=== PATIENT | female | born 1955 | race Caucasian/White ===

== ENCOUNTER 2016-09-04 04:30 | Emergency (ER) | payer OTHER, MEDICAID ==
[2016-09-04] MEDS ORDERED: ONDANSETRON 4 MG/2 ML VIAL IVP ONE (04:47)
[2016-09-04] MEDS ORDERED: NS 1,000 ML IV ONE ×2 (04:47→05:57)
[2016-09-04] MEDS ORDERED: POTASSIUM Cl (KCl) 100 ML IV ONE (05:01)
--- NOTE | 2016-09-04 05:01 | EDPHY ---
H & P Stated Complaint: elevated glucoses at home, RLQ pain, N/V x6 days, possible constipation HPI/ROS: HPI CHIEF COMPLAINT: Right lower quadrant abdominal pain, persistent nausea vomiting HISTORY OF PRESENT ILLNESS: this patient very pleasant 61-year-old female significant past medical history for depression, PTSD, insulin-dependent diabetes, GERD, IBS and hypertension she presents to the emergency room with 6 days of ongoing right lower quadrant abdominal pain she describes as burning sensation and then at time stabbing, nonradiating. She has associated nausea vomiting with this. She denies diarrhea, denies fever, denies chest pain or shortness of breath. States it has progressively gotten worse. Ongoing nausea vomiting. Time 6 days. Past Medical History: Insulin-dependent diabetes, PTSD, depression, GERD, IBS , hypertension Past Surgical History: Gallbladder removal, it is noted she still has her appendix Social History: Daily use of tobacco, denies drugs or alcohol Family History: noncontributory ROS REVIEW OF SYSTEMS: A comprehensive 10 point review of systems is otherwise negative aside from elements mentioned in the history of present illness. Exam Constitutional appears nontoxic triage nursing summary reviewed, vital signs reviewed, awake/alert. Eyes normal conjunctivae and sclera, EOMI, PERRLA. HENT normal inspection, atraumatic, moist mucus membranes, no epistaxis, neck supple/ no meningismus, no raccoon eyes. Respiratory clear to auscultation bilaterally, normal breath sounds, no respiratory distress, no wheezing. Cardiovascular rate normal, regular rhythm, no murmur, no edema, distal pulses normal. Gastrointestinal soft, tender palpation right lower quadrant no rebound, no guarding, normal bowel sounds, no distension, no pulsatile mass. Genitourinary no CVA tenderness. Musculoskeletal no midline vertebral tenderness, full range of motion, no calf swelling, no tenderness of extremities, no meningismus, good pulses, neurovascularly intact. Skin pink, warm, & dry, no rash, skin atraumatic. Neurologic awake, alert and oriented x 3, AAOx3, moves all 4 extremities equally, motor intact, sensory intact, CN II-XII intact, normal cerebellar, normal vision, normal speech. Psychiatric normal mood/affect. Heme/Lymph/Immune no lymphadenopathy. Differential diagnosis includes but is not limited to and in no particular order : Bowel obstruction, appendicitis, gallbladder disease, diverticulitis, colitis , enteritis, perforated viscus, gastritis, GERD, esophagitis, urinary tract infection, pyelonephritis, kidney stones, DKA Medical Decision Making: This patient had an IV established patient received a fluid bolus, IV Zofran 4 mg for nausea, IV morphine for pain control. She will need a lactic acid and a CT scan of her abdomen pelvis. Re-evaluation: 0600: this noted patient's blood work results her potassium is 5.5. Also please note that there was an order in for 10 mg IV potassium this has been discontinued she did not get this. This was mistakenly ordered. She did receive IV fluids 1 L so far ordered her 2nd IV fluid [address] scan of the abdomen pelvis with IV contrast The results of the study are duodenal thickening concerning for duodenitis however no significant inflammation around this, unremarkable appendix, otherwise unremarkable CT scan and pelvis with IV contrast. The study was read by Dr. Sheldon I viewed the images myself on the PACS system. 0635: this patient p. o. challenge successfully without any vomiting. Her abdomen remained soft nontender. She did receive a 2nd L fluid in her repeat BMP is pending. Source: Patient - Personal History Current Tetanus/Diphtheria Vaccine: Unsure Current Tetanus Diphtheria and Acellular Pertussis (TDAP): Unsure Tetanus Vaccine Date: < 10 - Medical/Surgical History Hx Asthma: Yes Hx Chronic Respiratory Disease: No Hx Diabetes: Yes Hx Cardiac Disease: No Hx Renal Disease: No Hx Cirrhosis: No Hx Alcoholism: No Hx HIV/AIDS: No Hx Splenectomy or Spleen Trauma: No Other PMH: C SECTION X2, T. LIGATION, HTN, IDDM, depression, IBS, ECT - Social History Smoking Status: Current every day smoker Constitutional: Initial Vital Signs Temperature (C) 37 C 09/04/16 04:34 Heart Rate 105 H 09/04/16 04:34 Respiratory Rate 16 09/04/16 04:34 Blood Pressure 107/86 H 09/04/16 04:34 O2 Sat (%) 91 L 09/04/16 04:34 O2 Delivery Mode Nasal Cannula O2 (L/minute) 2 Allergies/Adverse Reactions: melatonin Allergy (Intermediate, Verified 02/02/16 08:47) quetiapine fumarate [From Seroquel] Allergy (Intermediate, Verified 02/02/16 08: 47) sulfamethoxazole [From Bactrim] Allergy (Verified 02/02/16 08:47) SLOGHING ORAL MUCOSA trimethoprim [From Bactrim] Allergy (Verified 02/02/16 08:47) SLOGHING ORAL MUCOSA Home Medications: Medication Instructions Recorded metFORMIN HCL [Glucophage 500 mg 1,000 mg PO BIDMEAL 05/14/11 (*)] Albuterol Hfa Anes Only [Proair 1 - 2 puffs IH DAILY PRN 02/02/16 Hfa Icu (*)] Aspirin [Aspirin 81mg (*)] 81 mg PO DAILY 02/02/16 Cholecalciferol Vit D3 [Vitamin D3 1,000 units PO DAILY 02/02/16 (*)] Cyclobenzaprine [Flexeril 10 MG 10 mg PO DAILY 02/02/16 (*)] Herbals/Supplements -Info Only 1 ea PO DAILY 02/02/16 Insulin Aspart [Novolog Flexpen] 5 - 10 unit SC BIDMEAL 02/02/16 Insulin Glargine [Lantus 100 40 units SC HS 02/02/16 UNITS/ML (*)] Lisinopril/Hydrochlorothiazide 1 each PO DAILY 02/02/16 [Lisinopril-Hctz 10-12.5 mg Tab] Ondansetron Odt [Zofran Odt 4 mg 8 mg PO DAILY PRN 02/02/16 (*)] Promethazine HCl [Phenergan 25mg 25 mg PO DAILY PRN 02/02/16 (*)] ALPRAZolam [Xanax 1 MG (*)] 1 mg PO BID #60 tab 02/11/16 Albuterol [Proventil Neb] 3 ml IH DAILY #0 deyvial 02/11/16 Docusate Sodium [Colace 100 MG (*)] 100 mg PO HS #30 cap 02/11/16 Hydrocodone/APAP 5/325 [[place] 1 tab PO Q4 PRN #10 tab 02/11/16 5/325 (*)] Phenylephrine/Shk Lv/Mo/Pet,Wh 1 jorge RI PRN PRN #0 oint 02/11/16 [Preparation H Oint] Pravastatin Sodium [Pravachol] 20 mg PO HS #0 tab 02/11/16 Sennosides [Senokot] 1 tab PO BID #0 tab 02/11/16 Temazepam [Restoril] 60 mg PO HS #30 capsule 02/11/16 Zolpidem Tartrate [Ambien 5MG (*)] 5 mg PO HS PRN #30 tab 02/11/16 buPROPion XL [Wellbutrin 150mg XL] 150 mg PO BID #60 tab 02/11/16 risperiDONE [Risperdal 0.25mg (*)] 0.25 mg PO BID #60 tab 02/11/16 Ondansetron HCl [Zofran] 4 mg PO Q4-6PRN PRN #10 tablet 09/04/16 Ranitidine HCl [Zantac] 150 mg PO DAILY #30 tablet 09/04/16 Medical Decision Making - Data Points Laboratory Results: Laboratory Results 09/04/16 05:10 09/04/16 05:10 09/04/16 09/04/16 09/04/16 05:10 05:10 05:10 WBC 12.60 10^3/uL H 10^3/uL (3.80-9.50) RBC 5.14 10^6/uL 10^6/uL (4.18-5.33) Hgb 15.3 g/dL g/dL (12.6-16.3) Hct 44.3 % % (38.0-47.0) MCV 86.2 fL fL (81.5-99.8) MCH 29.8 pg pg (27.9-34.1) MCHC 34.5 g/dL g/dL (32.4-36.7) RDW 15.0 % % (11.5-15.2) Plt Count 255 10^3/uL 10^3/uL (150-400) MPV 9.5 fL fL (8.7-11.7) Neut % (Auto) 59.3 % % (39.3-74.2) Lymph % (Auto) 27.7 % % (15.0-45.0) [place] % (Auto) 11.9 % % (4.5-13.0) Eos % (Auto) 0.3 % L % (0.6-7.6) Baso % (Auto) 0.3 % % (0.3-1.7) Nucleat RBC Rel Count 0.0 % % (0.0-0.2) Absolute Neuts (auto) 7.47 10^3/uL H 10^3/uL (1.70-6.50) Absolute Lymphs (auto) 3.49 10^3/uL H 10^3/uL (1.00-3.00) Absolute Monos (auto) 1.50 10^3/uL H 10^3/uL (0.30-0.80) Absolute Eos (auto) 0.04 10^3/uL 10^3/uL (0.03-0.40) Absolute Basos (auto) 0.04 10^3/uL 10^3/uL (0.02-0.10) Absolute Nucleated RBC 0.00 10^3/uL 10^3/uL (0-0.01) Immature Gran % 0.5 % % (0.0-1.1) Immature Gran # 0.06 10^3/uL 10^3/uL (0.00-0.10) PT 14.7 SEC SEC (12.0-15.0) INR 1.15 (0.83-1.16) APTT 30.9 SEC SEC (23.0-38.0) VBG Lactic Acid Sodium 132 mEq/L L mEq/L (134-144) Potassium 5.5 mEq/L H mEq/L (3.5-5.2) Chloride 93 mEq/L L mEq/L (97-110) Carbon Dioxide 24 mEq/l mEq/l (22-31) Anion Gap 15 mEq/L mEq/L (8-16) BUN 26 mg/dL H mg/dL (7-23) Creatinine 0.7 mg/dL mg/dL (0.6-1.0) Estimated GFR > 60 Glucose 258 mg/dL H mg/dL (70-100) Calcium 9.4 mg/dL mg/dL (8.5-10.4) Total Bilirubin 1.5 mg/dL H mg/dL (0.1-1.4) Conjugated Bilirubin 0.7 mg/dL H mg/dL (0.0-0.5) Unconjugated Bilirubin 0.8 mg/dL mg/dL (0.0-1.1) AST 50 IU/L H IU/L (14-46) ALT 37 IU/L IU/L (9-52) Alkaline Phosphatase 104 IU/L IU/L (38-126) Total Protein 7.9 g/dL g/dL (6.3-8.2) Albumin 4.2 g/dL g/dL (3.5-5.0) Lipase 49.0 IU/L IU/L (23-300) Specimen Hemolysis 145 09/04/16 05:10 WBC RBC Hgb Hct MCV MCH MCHC RDW Plt Count MPV Neut % (Auto) Lymph % (Auto) [place] % (Auto) Eos % (Auto) Baso % (Auto) Nucleat RBC Rel Count Absolute Neuts (auto) Absolute Lymphs (auto) Absolute Monos (auto) Absolute Eos (auto) Absolute Basos (auto) Absolute Nucleated RBC Immature Gran % Immature Gran # PT INR APTT VBG Lactic Acid 1.8 mmol/L mmol/L (0.7-2.1) Sodium Potassium Chloride Carbon Dioxide Anion Gap BUN Creatinine Estimated GFR Glucose Calcium Total Bilirubin Conjugated Bilirubin Unconjugated Bilirubin AST ALT Alkaline Phosphatase Total Protein Albumin Lipase Specimen Hemolysis Medications Given: Discontinued Medications Sodium Chloride (Ns) 1,000 mls @ 0 mls/hr IV ONCE ONE PRN Reason: Wide Open Stop: 09/04/16 04:48 Last Admin: 09/04/16 04:50 Dose: 1,000 mls Potassium Chloride (Potassium Cl 10 Meq (Premix)) 100 mls @ 100 mls/hr IV EDNOW ONE Stop: 09/04/16 06:00 Last Admin: 09/04/16 05:03 Dose: Not Given Sodium Chloride (Ns) 1,000 mls @ 0 mls/hr IV ONCE ONE PRN Reason: Wide Open Stop: 09/04/16 05:58 Last Admin: 09/04/16 06:08 Dose: 1,000 mls Morphine Sulfate (Morphine) 6 mg IVP EDNOW ONE Stop: 09/04/16 04:48 Last Admin: 09/04/16 05:02 Dose: 6 mg Ondansetron HCl (Zofran) 4 mg IVP EDNOW ONE Stop: 09/04/16 04:48 Last Admin: 09/04/16 05:00 Dose: 4 mg Departure - Departure Disposition: Home, Routine, Self-Care Clinical Impression: Nausea & vomiting Qualifiers: Vomiting type: unspecified Vomiting Intractability: non-intractable Qualified Code(s): R11.2 - Nausea with vomiting, unspecified Abdominal pain Qualifiers: Abdominal location: right lower quadrant Qualified Code(s): R10.31 - Right lower quadrant pain Condition: Good Instructions: Acute Nausea and Vomiting (ED), Acute Abdominal Pain (ED) Additional Instructions: 1. Stay well-hydrated drink clear fluids today 2.Slowly advance her diet over the next 24 hours 3. return to the emergency room if you have worsening symptoms questions or concerns. Referrals: Toney Galaivz MD [Primary Care Provider] - As per Instructions Prescriptions: Ondansetron HCl [Zofran] 4 mg PO Q4-6PRN PRN #10 tablet PRN Reason: Nausea/Vomiting, Use 1st Ranitidine HCl [Zantac] 150 mg PO DAILY #30 tablet
[2016-09-04 05:22] LABS: % IMMATURE GRANULYOCYTES 0.5 % (0.0-1.1); ABSOLUTE IMMATURE GRANULOCYTES 0.06 10^3/uL (0.00-0.10); ADD DIFF? NO; ADD MORPH? NO; ADD SCAN? NO; ATYPICAL LYMPHOCYTE FLAG 10 (0-99); FRAGMENT RBC FLAG 0 (0-99); HEMATOCRIT 44.3 % (38.0-47.0); HEMOGLOBIN 15.3 g/dL (12.6-16.3); LEFT SHIFT FLG 10 (0-99); LIPEMIA HEMOLYSIS FLAG 90 (0-99); MEAN CELL HEMOGLOBIN 29.8 pg (27.9-34.1); MEAN CELL HEMOGLOBIN CONCENTR. 34.5 g/dL (32.4-36.7); MEAN CELL VOLUME 86.2 fL (81.5-99.8); MEAN PLATELET VOLUME 9.5 fL (8.7-11.7); PLATELET CLUMPS FLAG 10 (0-99); PLATELET COUNT 255 10^3/uL (150-400); RED BLOOD CELL COUNT 5.14 10^6/uL (4.18-5.33)
[2016-09-04 05:34] LABS: INR 1.15 (0.83-1.16); PROTIME(PATIENT) 14.7 SEC (12.0-15.0)
[2016-09-04 05:35] LABS: APTT 30.9 SEC (23.0-38.0)
[2016-09-04 05:38] LABS: ALANINE AMINOTRANSFERASE 37 IU/L (9-52); ALBUMIN 4.2 g/dL (3.5-5.0); ALKALINE PHOSPHATASE 104 IU/L (38-126); ANION GAP 15 mEq/L (8-16); ASPARTATE AMINOTRANSFERASE 50 IU/L (14-46); BILIRUBIN,TOTAL 1.5 mg/dL (0.1-1.4); BILIRUBIN-CONJUGATED 0.7 mg/dL (0.0-0.5); BILIRUBIN-UNCONJUGATED 0.8 mg/dL (0.0-1.1); CALCIUM 9.4 mg/dL (8.5-10.4); CARBON DIOXIDE 24 mEq/l (22-31); CHLORIDE 93 mEq/L (97-110); CREATININE 0.7 mg/dL (0.6-1.0); GLOMERULAR FILTRATION RATE > 60; GLUCOSE 258 mg/dL (70-100); POTASSIUM 5.5 mEq/L (3.5-5.2); SODIUM 132 mEq/L (134-144); SPECIMEN HEMOLYSIS 145; TOTAL PROTEIN 7.9 g/dL (6.3-8.2)
[2016-09-04] MEDS ORDERED: IOPAMIDOL (ISOVUE-300) 100 ML BTL IV ONE (05:44)
[2016-09-04 06:09] VITALS: O2SAT 95
[2016-09-04] MEDS ORDERED: PANTOPRAZOLE SODIUM 40 MG in NS 100 ML IV ONE (06:21)
[2016-09-04 06:50] LABS: COLOR YELLOW; LEUKOCYTE ESTERASE,URINE TRACE (NEGATIVE); NITRITE,URINE NEGATIVE (NEGATIVE)
[2016-09-04 06:58] LABS: BACTERIA TRACE /hpf (NONE SEEN); MUCUS TRACE /lpf (NONE-1+); WBC,URINE 15-25 /hpf (0-3)
[2016-09-04 07:15] LABS: ANION GAP 12 mEq/L (8-16); CALCIUM 7.8 mg/dL (8.5-10.4); CARBON DIOXIDE 25 mEq/l (22-31); CHLORIDE 98 mEq/L (97-110); CREATININE 0.6 mg/dL (0.6-1.0); GLOMERULAR FILTRATION RATE > 60; GLUCOSE 219 mg/dL (70-100); POTASSIUM 3.8 mEq/L (3.5-5.2); SODIUM 135 mEq/L (134-144)
[2016-09-04 07:40] VITALS: BP 107/75; PULSE 90; RESP 14; TEMP 98.1
== END 2016-09-04 07:36 | disposition home or self-care (01) ==
DX: R10.31 Right lower quadrant pain (principal); R11.2 Nausea with vomiting, unspecified; E11.9 Type 2 diabetes mellitus without complications; I10 Essential (primary) hypertension; J45.909 Unspecified asthma, uncomplicated; F17.200 Nicotine dependence, unspecified, uncomplicated; Z79.4 Long term (current) use of insulin; Z79.82 Long term (current) use of aspirin
CPT/HCPCS: 74177; 96361; 96365; 96375; 99285; J2405; Q9967

== ENCOUNTER 2017-03-04 19:58 | Inpatient (IN) | payer OTHER, MEDICAID ==
--- NOTE | 2017-03-04 20:27 | EDPHY ---
HPI/HX/ROS/PE/MDM Narrative: CHIEF COMPLAINT: Left eye and face rash/pain HPI: The patient is a 61 y/o female who complains of left eye and face rash and pain , onset 4 days ago. She stated the rash started around her left eye and progressed to her left cheek and right forehead. She saw her PCP when the rash initially started, and her doctor thought it could be shingles. Her left eye also began to close because of the rash and swelling. She states the rash hurts more than it itches. Denies mora, putting medicine on the rash, being out in the sun, exposure to new detergent or cloth, insect bites. Denies blisters, fever, rash on other parts of her body, or other pertinent symptoms. Portions of this note were transcribed by an ED scribe. I personally performed the history, physical exam, and medical decision making; and confirm the accuracy of the information in the transcribed note. REVIEW OF SYSTEMS: Aside from elements discussed in the HPI, a comprehensive 10-point review of systems was reviewed and is negative. PMH: Shingles Diabetes Hypertension Hypercholesteremia Depression SOCIAL HISTORY: at bedside Lives in [place] Smoker PHYSICAL EXAM: General:Patient is alert, in no acute distress. ENT:Right eye normal. Left periorbital swelling noted to the point where I cannot visualize the eye. No reported pain with eye movement however. Ears normal. Neck: Normal inspection. Full range of motion. Respiratory:No respiratory distress. Breath sounds normal bilaterally. Cardiovascular: Regular rate and rhythm. Strong peripheral pulses. Normal cap refill. Abdomen:The abdomen is nontender to palpation. There are no peritoneal signs. There are normal bowel sounds. Back: Normal to inspection. No tenderness to palpation. Skin: Very well demarcated erythematic area to skin, no vesicles, rash involves entire left side of face as well as right forehead and cheek. Otherwise normal color. See MDM discussion for more details. Extremities: Normal appearance. Full range of motion. Neuro: Oriented x3. Normal motor function. Normal sensory function. Psych: Unusual affect. ED Course: 2024: Reassessed patient and discussed plan for outpatient follow up. She did not want to do this, so plan for admission. 100mL IV Cefazolin given for her rash. 2044: Spoke with hospitalist service, Dr. Quiroz accepts admission of this patient. MDM: The patient is a 61 y/o female who presents with a very well demarcated erythematic area of skin to her face, of unknown etiology. She apparently has a history of Shingles, and this was the diagnosis given to her by her doctor recently, but I think this is quite unlikely as no vesicles are visible, and the rash clearly not only crosses the midline, but extends near the contralateral ear. The most unusual aspect of the rash is how well-demarcated it is - there is a clear space of approximately 1cm between superior border and hairline, and there is a linear diagonal area on her nose that appears to be spared. The rash looks most consistent with a topical burn of some kind, either from topical medication or a thermal burn, but patient adamantly denies this. The predominance on the left side of the face combined with sparing around the hairline, as in a hat, made me suspicious for photoexposure, but patient denies this possibility as well. In the absence of other clear etiology , I think we have to assume this is very aggressive facial erysipelas, which is particularly concerning given the patient's history of poorly-compliant IDDM. I offered her treatment as an outpatient with close ED follow-up visit tomorrow , but she declines this in favor of admission to the hospital for IV antibiotics and observation. General Time Seen by Provider: 03/04/17 20:11 Initial Vital Signs: Initial Vital Signs Temperature (C) 36.9 C 03/04/17 20:04 Heart Rate 105 H 03/04/17 20:04 Respiratory Rate 18 03/04/17 20:04 Blood Pressure 111/77 03/04/17 20:04 O2 Sat (%) 92 03/04/17 20:04 O2 Delivery Mode Room Air Allergies/Adverse Reactions: melatonin Allergy (Intermediate, Verified 02/02/16 08:47) quetiapine fumarate [From Seroquel] Allergy (Intermediate, Verified 02/02/16 08: 47) sulfamethoxazole [From Bactrim] Allergy (Verified 02/02/16 08:47) SLOGHING ORAL MUCOSA trimethoprim [From Bactrim] Allergy (Verified 02/02/16 08:47) SLOGHING ORAL MUCOSA Home Medications: Medication Instructions Recorded metFORMIN HCL [Glucophage 500 mg 1,000 mg PO BIDMEAL 05/14/11 (*)] Albuterol Hfa Anes Only [Proair 1 - 2 puffs IH DAILY PRN 02/02/16 Hfa Icu (*)] Aspirin [Aspirin 81mg (*)] 81 mg PO DAILY 02/02/16 Cholecalciferol Vit D3 [Vitamin D3 1,000 units PO DAILY 02/02/16 (*)] Cyclobenzaprine [Flexeril 10 MG 10 mg PO DAILY PRN 02/02/16 (*)] Insulin Aspart [Novolog Flexpen] 0 - 20 unit SC TIDMEAL 02/02/16 Insulin Glargine [Lantus 100 46 units SC HS 02/02/16 UNITS/ML (*)] Lisinopril/Hydrochlorothiazide 1 each PO DAILY 02/02/16 [Lisinopril-Hctz 10-12.5 mg Tab] Ondansetron Odt [Zofran Odt 4 mg 8 mg PO DAILY PRN 02/02/16 (*)] Promethazine HCl [Phenergan 25mg 25 mg PO DAILY PRN 02/02/16 (*)] ALPRAZolam [Xanax 1 MG (*)] 1 mg PO BID #60 tab 02/11/16 Docusate Sodium [Colace 100 MG (*)] 100 mg PO HS #30 cap 02/11/16 Temazepam [Restoril] 60 mg PO HS #30 capsule 02/11/16 buPROPion XL [Wellbutrin 150mg XL] 150 mg PO BID #60 tab 02/11/16 risperiDONE [Risperdal 0.25mg (*)] 0.25 mg PO BID #60 tab 02/11/16 Ranitidine HCl [Zantac] 150 mg PO DAILY #30 tablet 09/04/16 Albuterol [Proventil Neb] 3 ml IH DAILY PRN 03/04/17 Hydrocodone/Acetaminophen [[place] 1 tab PO DAILY PRN 03/04/17 5/325 (*)] Simvastatin 10 mg PO HS 03/04/17 Vitamin B Complex 1 each PO DAILY 03/04/17 [X-Wpsuizd-Mwhvvhp B-12] Departure - Departure Disposition: [facility] Acute Clinical Impression: Erysipelas Condition: Fair Report Scribed for: Berlin Dougherty Report Scribed by: Licha Reis Date of Report: 03/04/17 Time of Report: 20:12
[2017-03-04] MEDS ORDERED: ceFAZolin 2 GM/DEXTROSE 100 ML IV ONE (20:28)
[2017-03-04] MEDS ORDERED: NS 1,000 ML IV ONE (20:34)
[2017-03-04 21:09] LABS: % IMMATURE GRANULYOCYTES 0.4 % (0.0-1.1); ABSOLUTE IMMATURE GRANULOCYTES 0.04 10^3/uL (0.00-0.10); ADD DIFF? NO; ADD MORPH? NO; ADD SCAN? NO; ATYPICAL LYMPHOCYTE FLAG 10 (0-99); FRAGMENT RBC FLAG 0 (0-99); HEMATOCRIT 41.2 % (38.0-47.0); HEMOGLOBIN 13.5 g/dL (12.6-16.3); LEFT SHIFT FLG 0 (0-99); LIPEMIA HEMOLYSIS FLAG 80 (0-99); MEAN CELL HEMOGLOBIN CONCENTR. 32.8 g/dL (32.4-36.7); MEAN CELL VOLUME 91.6 fL (81.5-99.8); MEAN PLATELET VOLUME 9.7 fL (8.7-11.7); PLATELET CLUMPS FLAG 10 (0-99); PLATELET COUNT 165 10^3/uL (150-400)
[2017-03-04 21:23] LABS: ANION GAP 14 mEq/L (8-16); CALCIUM 8.8 mg/dL (8.5-10.4); CARBON DIOXIDE 20 mEq/l (22-31); CHLORIDE 100 mEq/L (97-110); CREATININE 0.6 mg/dL (0.6-1.0); GLOMERULAR FILTRATION RATE > 60; GLUCOSE 298 mg/dL (70-100); POTASSIUM 3.8 mEq/L (3.5-5.2); SODIUM 134 mEq/L (134-144)
[2017-03-04] MEDS ORDERED: PROMETHAZINE HCL 25 MG/ML INJ IVP PRN (21:46)
[2017-03-04] MEDS ORDERED: ONDANSETRON 4 MG/2 ML VIAL IVP PRN (21:46)
[2017-03-04] MEDS ORDERED: ACETAMINOPHEN 325 MG TAB PO PRN (21:46)
[2017-03-04] MEDS ORDERED: ALBUTEROL HFA ANES ONLY 200 PUFFS/8.5 GM MDI IH PRN (21:47)
[2017-03-04] MEDS ORDERED: ONDANSETRON DISINTEGRATING 4 MG TAB PO PRN (21:47)
[2017-03-04] MEDS ORDERED: D50W 25 GM/50 ML SYR IVP PRN (21:49)
[2017-03-04] MEDS ORDERED: ALBUTEROL 200 PUFFS/18 GM MDI IH PRN (21:50)
[2017-03-04] MEDS ORDERED: ceFAZolin 2 GM/DEXTROSE 100 ML IV SCH (22:00)
[2017-03-04] MEDS ORDERED: TEMAZEPAM 15 MG CAP PO PRN (22:01)
--- NOTE | 2017-03-04 22:13 | GHP ---
[f rep st] HISTORY AND PHYSICAL DATE OF ADMISSION: 03/04/2017 CHIEF COMPLAINT: Facial swelling and redness. HISTORY OF PRESENT ILLNESS: This is a 61-year-old female with history of poorly controlled diabetes mellitus and depression, who presented to the emergency department today with 4 days of facial swelli ng and redness. She denies any trauma. She does not recall being bitten by any insects. She has so me chills, but no fever. She does not monitor her blood sugar. The patient has been suffering from major depressive disorder and has undergone ECT. She tells me he r daughter was killed 6 years ago while at [place]. She has never gotten over the of her daugh jose, which I told her was understandable. PAST MEDICAL HISTORY: 1. Diabetes mellitus. 2. Hypertension. 3. Dyslipidemia. 4. Major depressive disorder. PAST SURGICAL HISTORY: section. HOME MEDICATIONS: Reviewed. Refer to C2FO for details. ALLERGIES: Melatonin, Seroquel, sulfamethoxazole, trimethoprim. SOCIAL HISTORY: She is and lives with her in [facility]. She smokes a pack a day . She denies any alcohol use. She denies any illicit drug use. FAMILY HISTORY: Reviewed and noncontributory. REVIEW OF SYSTEMS: Comprehensive 10-point review of systems was done and is negative, except for as mentioned in the HPI and below. The patient denies any pain with moving her eyes or vision problems once her left eyelid is open. PHYSICAL EXAMINATION: VITAL SIGNS: Blood pressure 112/87, pulse 93, respiratory rate 18, O2 saturat ion 94% on room air. Temperature afebrile. GENERAL: No acute distress. HEAD: Normocephalic. EYE S: PERRLA. Extraocular muscles are intact without entrapment. Left eyelid is swollen shut. There is erythema from the left mid face across the forehead with some crusting, no fluctuance or induratio n. MOUTH: Moist mucous membranes. No oral lesions. NECK: Supple. No lymphadenopathy. CARDIOVAS CULAR: S1, S2. No JVD. No lower extremity edema. PULMONARY: Lungs are clear. No wheezes, rales, or rhonchi. ABDOMEN: Soft, nontender, nondistended. No guarding or rebound tenderness. Normoacti ve bowel sounds. EXTREMITIES: No clubbing or cyanosis. NEURO: Cranial nerves 2-12 grossly intact. No focal motor or sensory deficits. SKIN: See above. DIAGNOSTICS: WBC is 9.59, hemoglobin 13.5, hematocrit 41.2, platelets 165. Sodium 134, potassium 3. 8, chloride 100, CO2 20, BUN 16, creatinine 0.6, glucose 298. Hemoglobin A1c done in October of 2016 was 9.5. ASSESSMENT/PLAN: This is a 61-year-old female presenting with: 1. Facial cellulitis without signs of orbital cellulitis. Plan: The patient was started on Ancef i n the emergency department, which will be continued at this time. The patient would benefit from sle eping with the head of the bed at 30 degrees to decrease eyelid swelling. 2. Poorly controlled diabetes mellitus. Plan: We will check a hemoglobin A1c. We will monitor bloo d sugars a.c. and h.s. We will continue her usual home dose of Lantus and treat with correctional in sulin as indicated. 3. History of hypertension. That appears to be well controlled. Plan is to continue home medicatio ns. 4. History of major depressive disorder. Plan: Continue home medications. At this time, the patient will be admitted to the hospital under inpatient status. Length of stay wi ll be dependent on her response to antibiotic treatment. /[id number]/MODL
[2017-03-04] MEDS: HYDROCODONE/APAP 5/325 TAB PO PRN (22:25)
[2017-03-04] MEDS: NICOTINE 21 MG/24 HR PATCH TD SCH (22:25)
[2017-03-04] MEDS ORDERED: ALPRAZolam 1 MG TAB PO SCH (22:36)
[2017-03-04] MEDS ORDERED: risperiDONE 0.25 MG TAB PO SCH (22:36)
[2017-03-04] MEDS ORDERED: INSULIN GLARGINE 100 UNITS/ML SYRINGE SC SCH (22:40)
[2017-03-04] MEDS ORDERED: INSULIN LISPRO 100 UNIT/ML SC ONE (23:00)
[2017-03-04] MEDS: risperiDONE 0.25 MG TAB PO SCH (23:03)
[2017-03-04] MEDS: PRAVASTATIN SODIUM 20 MG TAB PO SCH (23:03)
[2017-03-04] MEDS: ALPRAZolam 1 MG TAB PO SCH (23:03)
[2017-03-04] MEDS: INSULIN GLARGINE 100 UNITS/ML SYRINGE SC SCH (23:04)
[2017-03-05] MEDS ORDERED: ALOE VERA TP PRN (00:56)
[2017-03-05] MEDS: ceFAZolin 2 GM/DEXTROSE 100 ML IV SCH ×3 (04:32→20:53)
[2017-03-05] MEDS: oxyCODONE IR 5 MG TAB PO PRN ×2 (05:03→17:38)
[2017-03-05 05:09] LABS: % IMMATURE GRANULYOCYTES 0.5 % (0.0-1.1); ABSOLUTE IMMATURE GRANULOCYTES 0.05 10^3/uL (0.00-0.10); ADD DIFF? NO; ADD MORPH? NO; ADD SCAN? NO; ATYPICAL LYMPHOCYTE FLAG 20 (0-99); FRAGMENT RBC FLAG 0 (0-99); HEMATOCRIT 41.5 % (38.0-47.0); HEMOGLOBIN 13.8 g/dL (12.6-16.3); LEFT SHIFT FLG 0 (0-99); LIPEMIA HEMOLYSIS FLAG 80 (0-99); MEAN CELL HEMOGLOBIN 29.7 pg (27.9-34.1); MEAN CELL HEMOGLOBIN CONCENTR. 33.3 g/dL (32.4-36.7); MEAN CELL VOLUME 89.2 fL (81.5-99.8); MEAN PLATELET VOLUME 9.4 fL (8.7-11.7); PLATELET CLUMPS FLAG 0 (0-99); PLATELET COUNT 185 10^3/uL (150-400); RED BLOOD CELL COUNT 4.65 10^6/uL (4.18-5.33)
[2017-03-05 05:32] LABS: ANION GAP 10 mEq/L (8-16); CALCIUM 9.4 mg/dL (8.5-10.4); CARBON DIOXIDE 26 mEq/l (22-31); CHLORIDE 98 mEq/L (97-110); CREATININE 0.7 mg/dL (0.6-1.0); GLOMERULAR FILTRATION RATE > 60; GLUCOSE 156 mg/dL (70-100); POTASSIUM 3.9 mEq/L (3.5-5.2); SODIUM 134 mEq/L (134-144)
[2017-03-05] MEDS: metFORMIN HCL 500 MG TAB PO SCH ×2 (08:04→17:38)
[2017-03-05] MEDS: FAMOTIDINE 20 MG TAB PO SCH (08:05)
[2017-03-05] MEDS: LISINOPRIL/HCTZ 10/12.5 MG 1 EA TAB PO SCH (08:05)
[2017-03-05] MEDS: CHOLECALCIFEROL VIT D3 1,000 UNITS TAB PO SCH (08:05)
[2017-03-05] MEDS: ASPIRIN 81 MG CHEWABLE TAB PO SCH (08:06)
[2017-03-05] MEDS: buPROPion XL 150 MG TAB PO SCH ×2 (08:06→20:53)
[2017-03-05] MEDS: VITAMIN B COMPLEX 1 EA CAP/TAB PO SCH (08:06)
[2017-03-05] MEDS: ENOXAPARIN 40 MG/0.4 ML SYR SC SCH (08:07)
[2017-03-05] MEDS: risperiDONE 0.25 MG TAB PO SCH ×2 (08:07→20:53)
[2017-03-05] MEDS: ALPRAZolam 1 MG TAB PO SCH ×2 (08:07→20:53)
[2017-03-05] MEDS: INSULIN LISPRO 100 UNIT/ML SC SCH ×3 (08:07→18:05)
[2017-03-05] MEDS: NICOTINE 21 MG/24 HR PATCH TD SCH (08:07)
[2017-03-05] MEDS ORDERED: NON-FORMULARY NEW DRUG (Ranitidine Hcl [Zantac] 150 MG) PO SCH (09:00)
[2017-03-05] MEDS ORDERED: ALPRAZolam 1 MG TAB PO SCH (09:00)
[2017-03-05] MEDS ORDERED: LISINOPRIL/HCTZ 10/12.5 MG 1 EA TAB PO SCH (09:00)
[2017-03-05] MEDS ORDERED: risperiDONE 0.25 MG TAB PO SCH (09:00)
[2017-03-05 09:51] LABS: HEMOGLOBIN A1C 9.1 % (4.0-6.0)
--- NOTE | 2017-03-05 09:52 | ASMTCASEMG ---
Living Arrangements What is your living Answers: With Spouse arrangement? Who do you live with? Type Of Residence What kind of residence do Answers: Apartment you live in? Discharge Plan Comments Coordination Status Comments Notes: Patient is a 61yo woman who was admitted for facial cellulitis and poorly controlled diabetes. She has a hx of depression and has undergone ECT. Patient's daughter was killed at [place], 6 years ago and she has not recovered from this event. OT/PT have been ordered. Patient is a pack a day smoker. CM will follow for d/c needs. Date Signed: 03/05/2017 09:51 AM Electronically Signed By:Gilma Echeverria
[2017-03-05] MEDS ORDERED: CALCIUM CARBONATE 500 MG CHEWABLE TAB PO PRN (10:13)
--- NOTE | 2017-03-05 10:18 | HOSPPROG ---
Hospitalist Progress Note Assessment/Plan: 61 y/o female presenting with #facial cellulitis improving on Ancef -cont IV Ancef for now #Uncontrolled T2 DM -cont to monitor sugars and treat with correctional insulin as needed #tobacco use -cont nicotine replacement and encourage quitting #Wheezing suspect underlying copd -duonebs prn Dispo: continue inpatient care Subjective: improving facial pain and swelling. Denies pain with eye movement. Denies visual disturbance Objective: Vital Signs Temp Pulse Resp BP Pulse Ox 37.1 C 95 18 120/75 95 03/05/17 07:32 03/05/17 07:32 03/05/17 07:32 03/05/17 08:05 03/05/17 07:32 Laboratory Results 03/05/17 04:49 03/05/17 04:49 Physical Exam: gen nad cv rrr pulm clear mild wheeze face with improving erythema over forehead erythema continues to persist adjacent to left eye. decreased eyelid swelling ICD10 Worksheet Patient Problems: Problems Problem Status Onset Hyperglycemia Acute Nausea & vomiting Acute Severe depression Acute Erysipelas Acute
[2017-03-05] MEDS: IPRATROPIUM/ALBUTEROL 3 ML DEYVIAL IH PRN ×2 (11:50→17:58)
[2017-03-05] MEDS: HYDROCODONE/APAP 5/325 TAB PO PRN (19:49)
[2017-03-05] MEDS: DOCUSATE SODIUM 100 MG CAP PO SCH (20:53)
[2017-03-05] MEDS: PRAVASTATIN SODIUM 20 MG TAB PO SCH (20:53)
[2017-03-05] MEDS: INSULIN GLARGINE 100 UNITS/ML SYRINGE SC SCH (20:54)
[2017-03-05] MEDS ORDERED: NON-FORMULARY NEW DRUG (Simvastatin [Simvastatin] 10 MG) PO SCH (21:00)
[2017-03-05] MEDS ORDERED: TEMAZEPAM 60 MG PO SCH (21:00)
[2017-03-05] MEDS ORDERED: INSULIN GLARGINE 100 UNITS/ML SYRINGE SC SCH (21:00)
[2017-03-05] MEDS ORDERED: INSULIN LISPRO 100 UNIT/ML SC ONE (22:39)
[2017-03-06] MEDS: ceFAZolin 2 GM/DEXTROSE 100 ML IV SCH ×3 (05:34→20:27)
[2017-03-06] MEDS: NICOTINE 21 MG/24 HR PATCH TD SCH (08:44)
[2017-03-06] MEDS: INSULIN LISPRO 100 UNIT/ML SC SCH ×3 (08:49→18:38)
[2017-03-06] MEDS: ENOXAPARIN 40 MG/0.4 ML SYR SC SCH (08:53)
[2017-03-06] MEDS: LISINOPRIL/HCTZ 10/12.5 MG 1 EA TAB PO SCH (08:54)
[2017-03-06] MEDS: ALPRAZolam 1 MG TAB PO SCH ×2 (08:57→20:28)
[2017-03-06] MEDS: VITAMIN B COMPLEX 1 EA CAP/TAB PO SCH (09:01)
[2017-03-06] MEDS: metFORMIN HCL 500 MG TAB PO SCH ×2 (09:01→17:20)
[2017-03-06] MEDS: risperiDONE 0.25 MG TAB PO SCH ×2 (09:02→20:28)
[2017-03-06] MEDS: buPROPion XL 150 MG TAB PO SCH ×2 (09:03→20:28)
[2017-03-06] MEDS: FAMOTIDINE 20 MG TAB PO SCH (09:04)
[2017-03-06] MEDS: CHOLECALCIFEROL VIT D3 1,000 UNITS TAB PO SCH (09:05)
[2017-03-06] MEDS: ASPIRIN 81 MG CHEWABLE TAB PO SCH (09:05)
[2017-03-06] MEDS: oxyCODONE IR 5 MG TAB PO PRN ×2 (11:30→17:20)
--- NOTE | 2017-03-06 15:44 | HOSPPROG ---
Hospitalist Progress Note Assessment/Plan: 61 y/o female presenting with #facial cellulitis improving on Ancef -cont IV Ancef #Uncontrolled T2 DM -cont to monitor sugars and treat with correctional insulin as needed #tobacco use -cont nicotine replacement and encourage quitting #Wheezing suspect underlying copd -adrienne prn Dispo: continue inpatient care. will likely be able to transition to oral antibiotics tomorrow and discharge home Subjective: reports improving pain over her left eye. Denies any vision problems. No fevers or chills. Overall she is feeling better. Objective: Vital Signs Temp Pulse Resp BP Pulse Ox 37.1 C 99 20 109/79 97 03/06/17 15:13 03/06/17 15:13 03/06/17 15:13 03/06/17 15:13 03/06/17 15:13 Laboratory Results 03/05/17 04:49 03/05/17 04:49 03/05/17 03/06/17 03/07/17 05:59 05:59 05:59 Intake Total 1000 Balance 1000 - Physical Exam Constitutional: no apparent distress, appears nourished, not in pain Cardiovascular: regular rate and rhythym, no murmur, rub, or gallop Respiratory: no respiratory distress, no rales or rhonchi, clear to auscultation Skin: other ( Improving erythema over forehead no induration or fluctuance erythema continues to be prominent around the left eye) Neurologic: AAOx3, sensation intact bilaterally, CN II-XII Intact, No facial droop ICD10 Worksheet Patient Problems: Problems Problem Status Onset Hyperglycemia Acute Nausea & vomiting Acute Severe depression Acute Erysipelas Acute
--- NOTE | 2017-03-06 15:46 | ASMTCMCOM ---
CM Note CM Note Notes: CM met w/ pt for dispo planning. OT is recommending home, independent. PT is recommending HC vs SNF. Pt reports that she has a supportive . Pt is declining HC and SNF. Pt will most likely discharge independent without any neeeds. Pt reports that she will need a ride when she discharges. CM and pt spoke about loss of daughter. Pt reports that she spends most of her day in bed due to her depression. Pt reports that she sees a therapist and finds it somewhat helpful. CM available for changes. Date Signed: 03/06/2017 03:45 PM Electronically Signed By:COOKIE Hagan
[2017-03-06] MEDS: IPRATROPIUM/ALBUTEROL 3 ML DEYVIAL IH PRN (19:15)
[2017-03-06] MEDS: INSULIN GLARGINE 100 UNITS/ML SYRINGE SC SCH (20:27)
[2017-03-06] MEDS: DOCUSATE SODIUM 100 MG CAP PO SCH (20:27)
[2017-03-06] MEDS: PRAVASTATIN SODIUM 20 MG TAB PO SCH (20:28)
[2017-03-06] MEDS: HYDROCODONE/APAP 5/325 TAB PO PRN (22:27)
[2017-03-07] MEDS: ceFAZolin 2 GM/DEXTROSE 100 ML IV SCH (05:07)
[2017-03-07] MEDS: metFORMIN HCL 500 MG TAB PO SCH (07:46)
[2017-03-07] MEDS: INSULIN LISPRO 100 UNIT/ML SC SCH ×2 (07:46→12:30)
[2017-03-07] MEDS: ALPRAZolam 1 MG TAB PO SCH (08:20)
[2017-03-07] MEDS: buPROPion XL 150 MG TAB PO SCH (08:20)
[2017-03-07] MEDS: CHOLECALCIFEROL VIT D3 1,000 UNITS TAB PO SCH (08:21)
[2017-03-07] MEDS: FAMOTIDINE 20 MG TAB PO SCH (08:21)
[2017-03-07] MEDS: HYDROCODONE/APAP 5/325 TAB PO PRN (08:21)
[2017-03-07] MEDS: LISINOPRIL/HCTZ 10/12.5 MG 1 EA TAB PO SCH (08:21)
[2017-03-07] MEDS: risperiDONE 0.25 MG TAB PO SCH (08:21)
[2017-03-07] MEDS: VITAMIN B COMPLEX 1 EA CAP/TAB PO SCH (08:22)
[2017-03-07] MEDS: NICOTINE 21 MG/24 HR PATCH TD SCH (08:22)
[2017-03-07] MEDS: ENOXAPARIN 40 MG/0.4 ML SYR SC SCH (08:22)
[2017-03-07] MEDS: ASPIRIN 81 MG CHEWABLE TAB PO SCH (08:22)
[2017-03-07 10:58] VITALS: BP 110/77; PULSE 91; RESP 16; TEMP 98.1; O2SAT 90
--- NOTE | 2017-03-07 12:16 | GDS ---
[f rep st] DISCHARGE SUMMARY DISCHARGE DIAGNOSES: 1. Facial cellulitis, most likely secondary to strep. 2. Poorly controlled type 2 diabetes mellitus. 3. Tobacco abuse. HOSPITAL COURSE AND STAY BY PROBLEM: 1. Facial cellulitis: The patient was admitted to the hospital with facial cellulitis. She has bee n on IV cefazolin since admission and has had significant improvement of the redness and swelling ove r her forehead and eye. She has not had any problems with her vision or signs or symptoms of orbital cellulitis. On the day of discharge, she states she is feeling much better. She denies any fevers or chills. 2. Poorly controlled type 2 insulin-dependent diabetes mellitus: The patient had a hemoglobin A1c d one that was 9.1. She does use insulin at home. The patient admits that she is not very compliant w ith her diet but strives to do better. Sugars were treated with correctional insulin during this sta y, and she was also treated with glargine insulin per her usual home dose. PHYSICAL EXAM: VITAL SIGNS: On the day of discharge, blood pressure 110/77, pulse 91, respiratory r ate 16, O2 sat 98% on room air. GENERAL: No acute distress. LUNGS: Clear. HEENT: Face with impr oving erythema over the forehead and around the left eye. There is no entrapment. Extraocular muscl es are intact. There is no pain with eye movement. DISCHARGE MEDICATIONS: Please refer to discharge medication reconciliation in [facility] for details. Below is a preliminary list. NEW MEDICATIONS ON HOSPITAL DISCHARGE: 1. Cephalexin 500 mg p.o. four times daily for 7 days. 2. A refill was given for [place] 5/325 to be taken as needed for pain every 4-6 hours, prescription f or #20 was given. 3. All other home medications were continued at her usual home dosages. DISCHARGE INSTRUCTIONS: The patient will be discharged home where she was instructed to follow up wi th her primary care provider in the next week for routine hospital followup as well as to further man age her diabetes. She was instructed to stop smoking. She should seek medical attention if her redn ess returns or if she has any new medical problems. /[id number]/MODL
--- NOTE | 2017-03-07 12:30 | ASMTCMCOM ---
CM Note CM Note Notes: Spoke w/pt re; dc poc, declines homecare but needs help w/transportation. CM assisted pt with cab voucher, community integration specialist to call for cab when pt is ready. Date Signed: 03/07/2017 12:29 PM Electronically Signed By:Sarah Alvarez RN
--- NOTE | 2017-03-07 14:21 | ASDISCHSUM ---
Discharge Information Plan Status:Home with No Needs Medically Cleared to Leave: Discharge Date:03/07/2017 01:35 PM CM D/C Disposition:Home, Routine, Self-Care ADT D/C Disposition:Home, Routine, Self-Care Projected Discharge Date:03/07/2017 01:35 PM Transportation at D/C:Cab Voucher Discharge Delay Reason: Follow-Up Date:03/07/2017 01:35 PM Discharge Slot: Final Diagnosis: Placement Information Patient Contact Information Contact Name:JACQUES Relationship: Address:[address] [place] [address] Work Phone: City:[place] Alternate Phone: [facility]/Zip Code:[place] [address] Email: Financial Information Financial Class: Primary Plan Desc:MEDICARE INPATIENT Primary Plan Number:[id number] Secondary Plan Desc:MED[place] Secondary Plan Number:[id number] Assessment Information [facility] Initial CM Assessment Living Arrangements What is your living Answers: With Spouse arrangement? Who do you live with? Type Of Residence What kind of residence do Answers: Apartment you live in? Discharge Plan Comments Coordination Status Comments Notes: Patient is a 61yo woman who was admitted for facial cellulitis and poorly controlled diabetes. She has a hx of depression and has undergone ECT. Patient's daughter was killed at [place], 6 years ago and she has not recovered from this event. OT/PT have been ordered. Patient is a pack a day smoker. CM will follow for d/c needs. Date Signed: 03/05/2017 09:51 AM Electronically Signed By:Gilma Echeverria LCSW [facility] CM Progress Note CM Note CM Note Notes: CM met w/ pt for dispo planning. OT is recommending home, independent. PT is recommending HC vs SNF. Pt reports that she has a supportive . Pt is declining HC and SNF. Pt will most likely discharge independent without any neeeds. Pt reports that she will need a ride when she discharges. CM and pt spoke about loss of daughter. Pt reports that she spends most of her day in bed due to her depression. Pt reports that she sees a therapist and finds it somewhat helpful. CM available for changes. Date Signed: 03/06/2017 03:45 PM Electronically Signed By:COOKIE Hagan [facility] Progress Note CM Note CM Note Notes: Spoke w/pt re; dc poc, declines homecare but needs help w/transportation. CM assisted pt with cab voucher, refinery operator helper crude unit to call for cab when pt is ready. Date Signed: 03/07/2017 12:29 PM Electronically Signed By:Sarah Alvarez RN Intervention Information Intervention Type:*Incorrect Registration Date of Service:03/04/2017 09:06 AM Patient Type:Observation Staff Member:Pastora Raphael Hours: Discipline: Severity: Comment: Intervention Type:*ROSANNA-Signed Date of Service:03/05/2017 09:28 AM Patient Type:Inpatient Staff Member:Emily Fowler Hours: Discipline: Severity: Comment:
== END 2017-03-07 13:35 | disposition home or self-care (01) | DRG 603 ==
LOC: F3E 21:33 → OBSVTOIN 21:45
PROVIDERS: ADMIT Family Medicine; ATTEND Family Medicine
DX: L03.211 Cellulitis of face (principal); E11.69 Type 2 diabetes mellitus with other specified complication; E78.00 Pure hypercholesterolemia, unspecified; F32.9 Major depressive disorder, single episode, unspecified; I10 Essential (primary) hypertension; Z72.0 Tobacco use; Z79.4 Long term (current) use of insulin; Z91.11 Patient's noncompliance with dietary regimen
CPT/HCPCS: 96365; 97116-GP; 97161-GP; 97165-GO; 97530-GP; 97535-GO; G8978-GP-CI; G8979-GP-CH; G8980-GP-CI; G8987-GO-CI; G8988-GO-CI; J0690; J1650; J1815

== ENCOUNTER → 2017-10-18 | Outpatient (CLI) | payer OTHER, MEDICAID | LOC: BHFA 11:00 | PROVIDERS: ATTEND Internal Medicine Cardiovascular Disease | DX: R55 Syncope and collapse (principal) ==

== ENCOUNTER → 2017-10-26 | Outpatient (CLI) | payer OTHER, MEDICAID | LOC: BHFA 09:15 | PROVIDERS: ATTEND Internal Medicine Interventional Cardiology | DX: R55 Syncope and collapse (principal) ==

== ENCOUNTER 2018-08-26 16:41 | Inpatient (IN) | payer OTHER, MEDICAID ==
--- NOTE | 2018-08-26 17:31 | EDPHY ---
H & P Stated Complaint: KARTIK lower leg numbness Time Seen by Provider: 08/26/18 16:57 HPI/ROS: CHIEF COMPLAINT: Abrupt onset of bilateral leg weakness, numbness, and pain HISTORY OF PRESENT ILLNESS: This is a 63-year-old lady with a past history of diabetes, hypertension, depression, asthma, irritable bowel who presents reporting that 3 days ago she was unable to get up off the toilet. She reports that her left leg was numb, weak, and unable to be coordinated. Her family had to help her to the bed. Since that time she has been unable to walk. She developed pain in her bilateral thighs over the next days. Patient denies any upper extremity symptoms, no headache, neck pain, speech difficulties. Patient denies any back pain. She does report that 3 weeks ago she fell into a TV stand , striking her back. She tells me she has had bowel incontinence for quite some time, but feels like this is increased since the episode of leg weakness. She evidently was helped to the car by her family and neighbor and was unable to get out of the car on arrival to the emergency department was brought to the room in a wheelchair. She denies any back pain. She denies fevers or chills. She denies chest pain or shortness of breath. She denies a past history of intravenous drug use. She denies a burning sensation in her legs. No fever, chills, chest pain, shortness of breath, palpitations, vomiting, diarrhea, headache, lightheadedness. REVIEW OF SYSTEMS: A comprehensive 10 system review of systems was reviewed and is otherwise negative aside from elements mentioned in the history of present illness and medical decision making. PAST MEDICAL HISTORY: Diabetes, hypertension, depression, SOCIAL HISTORY: , smoker, denies alcohol use, denies illicit drug use. VITAL SIGNS Reviewed by me. GENERAL: Moderately overweight, reports pain and weakness of the lower extremities. Unable to help herself up in the bed. . HEENT: Atraumatic. Eyes: No icterus, no injection. Mouth: moist mucous membranes. No erythema or lesions. Neck: supple with no adenopathy. LUNGS: Clear to auscultation bilaterally, no wheezes, rhonchi or rales. CARDIAC: Regular rate and rhythm, no rubs, murmurs or gallops. ABDOMEN: Soft, nontender, nondistended, bowel sounds normal. BACK: No vertebral tenderness to palpation. No erythema. No CVA tenderness. EXTREMITIES: No trauma. Extreme weakness both lower extremities. Patient unable to lift her legs off the bed. She reports that they are very painful as well. Decreased sensation to light touch circumflex [place] on both lower extremities, left greater than right. NEURO: Alert and oriented, with the exception of the legs, the remainder of the patient's neurologic exam is normal. SKIN: Warm and dry, no rash. PSYCHIATRIC: Normal mentation, no agitation. - Personal History Current Tetanus/Diphtheria Vaccine: Unsure Current Tetanus Diphtheria and Acellular Pertussis (TDAP): Unsure Tetanus Vaccine Date: < 10 - Medical/Surgical History Hx Asthma: Yes Hx Chronic Respiratory Disease: No Hx Diabetes: Yes Hx Cardiac Disease: Yes Hx Renal Disease: No Hx Cirrhosis: No Hx Alcoholism: No Hx HIV/AIDS: No Hx Splenectomy or Spleen Trauma: No Other PMH: C SECTION X2, T. LIGATION, HTN, IDDM, depression, IBS, ECT, hYPERLIPIDEMIA, DM, ASTHMA, SHINGLES, ELBOW SURGEY, CHOLY - Social History Smoking Status: Current every day smoker Constitutional: Initial Vital Signs Temperature (C) 36.8 C 08/26/18 16:54 Heart Rate 95 08/26/18 16:54 Respiratory Rate 16 08/26/18 16:54 Blood Pressure 118/79 08/26/18 16:54 O2 Sat (%) 94 08/26/18 16:54 O2 Delivery Mode Room Air Allergies/Adverse Reactions: melatonin Allergy (Intermediate, Verified 08/26/18 16:52) quetiapine fumarate [From Seroquel] Allergy (Intermediate, Verified 08/26/18 16: 52) sulfamethoxazole [From Bactrim] Allergy (Verified 08/26/18 16:52) SLOGHING ORAL MUCOSA trimethoprim [From Bactrim] Allergy (Verified 08/26/18 16:52) SLOGHING ORAL MUCOSA Home Medications: Medication Instructions Recorded metFORMIN HCL [Glucophage 500 mg 1,000 mg PO BIDMEAL 05/14/11 (*)] Albuterol Hfa Anes Only [Proair 1 - 2 puffs IH DAILY PRN 02/02/16 Hfa Icu (*)] Aspirin [Aspirin 81mg (*)] 81 mg PO DAILY 02/02/16 Cholecalciferol Vit D3 [Vitamin D3 1,000 units PO DAILY 02/02/16 (*)] Cyclobenzaprine [Flexeril 10 MG 10 mg PO DAILY PRN 02/02/16 (*)] Insulin Aspart [Novolog Flexpen] 0 - 20 unit SC TIDMEAL 02/02/16 Lisinopril/Hydrochlorothiazide 1 each PO DAILY 02/02/16 [Lisinopril-Hctz 10-12.5 mg Tab] Ondansetron Odt [Zofran Odt 4 mg 8 mg PO DAILY PRN 02/02/16 (*)] Promethazine HCl [Phenergan 25mg 25 mg PO DAILY PRN 02/02/16 (*)] ALPRAZolam [Xanax 1 MG (*)] 1 mg PO BID #60 tab 02/11/16 Docusate Sodium [Colace 100 MG (*)] 100 mg PO HS #30 cap 02/11/16 Temazepam [Restoril] 60 mg PO HS #30 capsule 02/11/16 buPROPion XL [Wellbutrin 150mg XL] 150 mg PO BID #60 tab 02/11/16 risperiDONE [Risperdal 0.25mg (*)] 0.25 mg PO BID #60 tab 02/11/16 Albuterol [Proventil Neb] 3 ml IH DAILY PRN 03/04/17 Simvastatin 10 mg PO HS 03/04/17 Vitamin B Complex 1 each PO DAILY 03/04/17 [W-Xmmvmwl-Bzvbunu B-12] Hydrocodone/APAP 5/325 [[place] 1 tab PO DAILY PRN #20 tab 03/07/17 5/325 (*)] Fluticasone Nasal [Flonase Nasal 1 sprays NASAL DAILY 08/26/18 [place] (RX)] Furosemide [Lasix 20 MG (*)] 20 mg PO DAILY 08/26/18 Insulin Glargine,Hum.rec.anlog 55 unit SQ HS 08/26/18 [Basaglar Kwikpen U-100] Potassium Cl [Klor-Con 20 meq (*)] 20 meq PO BID 08/26/18 Ranitidine HCl [Zantac] 150 mg PO BID 08/26/18 Medical Decision Making - Diagnostics EKG Interpretation: 12-LEAD EKG: Please see the full report in [facility]. My interpretation: Sinus rhythm Imaging Results: CXR: Impression: 1. Minimal scarring in the lingula. 2. No definite pneumonia. Dictated By: Jamil Walls Head CT: Impression: 1. Mild cerebral atrophy.. 2. No skull fracture or hemorrhage. 3. Cerebrovascular atherosclerosis. 4. Consider MRI brain if clinically indicated. Findings and recommendations discussed with Emergency Department physician, Mary Correa MD at 18:55 hour, 08/26/2018. Final report concurs with initial preliminary interpretation. Dictated By: Jamil Walls Thoracic spine MRI Impression: Mild dextroscoliosis of the thoracic spine; otherwise negative exam , without evidence of disk herniation or abnormal thoracic cord signal. Dictated By: Noah Baca MD Lumbar spine MRI Impression: 1. Mild features of degenerative disk disease at the lower lumbar spine, as detailed by level above. There is mild-moderate left neural foraminal narrowing at L5-S1. No discrete disk prolapse or neural impingement identified.. Results called to Dr. Mary Correa at 7:55 PM. Dictated By: Noah Baca MD Imaging: Discussed imaging studies w/ manager software development Radiologist, I viewed and interpreted images myself ED Course/Re-evaluation: 63 year old female presenting with abrupt onset of bilateral lower extremity weakness and circumferential numbness. This occurred 3 days ago. On further questioning and examination, patient's symptoms seem most severe in the left lower extremity. Patient reports she is unable to walk and family concurs that they have been having to help her around. She has no back pain. Patient was worried that she might have been having a stroke. Head CT was negative. Thoracic and lumbar spine MRIs were negative for findings. Patient does have history of diabetes and now reports that her hemoglobin A1c has been running quite high. On return from imaging studies, the patient was re-examined by myself. With the nursing staff we attempted to get the patient up and walking, she is unable to bear weight secondary to weakness and has discoordination of her left lower leg. She says she can't feel the ground and that her soles are numb. Patient was admitted to the hospital for further evaluation and workup of her weakness. Course was discussed with Dr. Argentina Reyes. Differential Diagnosis: Differential diagnoses for the patient's symptom complex was considered including but not limited to electrolyte abnormalities, transverse myelitis, epidural abscess, peripheral neuropathies, thromboembolic disease, stroke, spinal cord abnormality. Consult/Admit Bed Type: Dr. Argentina Reyes, med surg - Data Points Laboratory Results: Laboratory Results 08/26/18 17:35 08/26/18 17:35 Medications Given: Alprazolam (Xanax) 1 mg PO BID MILI Stop: 02/23/19 08:59 Last Admin: 08/28/18 09:30 Dose: 1 mg Aspirin (Aspirin) 81 mg PO DAILY MILI Stop: 02/23/19 08:59 Last Admin: 08/28/18 09:29 Dose: 81 mg Bupropion HCl (Wellbutrin Xl) 150 mg PO BID MILI Stop: 02/23/19 08:59 Last Admin: 08/28/18 09:30 Dose: 150 mg Cholecalciferol (Vitamin D) 1,000 units PO DAILY MILI Stop: 02/23/19 08:59 Last Admin: 08/28/18 09:29 Dose: 1,000 units Cyclobenzaprine HCl (Flexeril) 10 mg PO DAILY PRN PRN Reason: Spasms Stop: 02/22/19 21:55 Last Admin: 08/26/18 23:36 Dose: 10 mg Docusate Sodium (Colace) 100 mg PO HS MILI Stop: 02/23/19 20:59 Last Admin: 08/27/18 20:55 Dose: 100 mg Enoxaparin Sodium (Lovenox) 40 mg SC DAILY MILI Stop: 02/23/19 08:59 Last Admin: 08/28/18 09:29 Dose: 40 mg Famotidine (Pepcid) 20 mg PO BID MILI Stop: 02/23/19 08:59 Last Admin: 08/28/18 09:31 Dose: 20 mg Fluticasone Propionate (Flonase Nasal [place]) 1 sprays [place]NARE DAILY MILI Stop: 02/23/19 08:59 Last Admin: 08/28/18 09:36 Dose: 1 spray Furosemide (Lasix) 20 mg PO DAILY MILI Stop: 02/23/19 08:59 Last Admin: 08/28/18 09:30 Dose: 20 mg Lisinopril/HCTZ (Zestoretic) 1 ea PO DAILY MILI Stop: 02/23/19 08:59 Last Admin: 08/28/18 09:30 Dose: 1 ea Insulin Glargine (Lantus Syringe) 55 units SC HS [facility] Stop: 02/22/19 22:44 Last Admin: 08/27/18 22:08 Dose: 55 units Insulin Human Lispro (Humalog Lispro) 0 unit SC TIDMEAL MILI PRN Reason: Protocol Stop: 02/23/19 07:59 Last Admin: 08/28/18 12:05 Dose: 2 unit Metformin HCl (Glucophage) 1,000 mg PO BIDMEAL [facility] Stop: 02/23/19 07:59 Last Admin: 08/28/18 09:29 Dose: 1,000 mg Pravastatin Sodium (Pravachol) 20 mg PO [facility] Stop: 02/23/19 20:59 Last Admin: 08/27/18 20:55 Dose: 20 mg Risperidone (Risperdal) 0.25 mg PO BID [facility] Stop: 02/23/19 08:59 Last Admin: 08/28/18 09:30 Dose: 0.25 mg Temazepam (Restoril) 60 mg PO [facility] Stop: 02/22/19 22:44 Last Admin: 08/27/18 20:56 Dose: 60 mg Vitamin B Complex (Vitamin B Complex) 1 ea PO DAILY [facility] Stop: 02/23/19 08:59 Last Admin: 08/28/18 09:30 Dose: 1 ea Discontinued Medications Magnesium Sulfate (Magnesium Sulf 2 Gm (Premix)) 50 mls @ 50 mls/hr IV ONCE ONE Stop: 08/27/18 09:12 Last Admin: 08/27/18 08:44 Dose: 50 mls Magnesium Sulfate (Magnesium Sulf 2 Gm (Premix)) 50 mls @ 50 mls/hr IV ONCE ONE Stop: 08/28/18 11:09 Last Admin: 08/28/18 10:35 Dose: 50 mls Oxycodone HCl (Oxycodone Ir) 5 - 10 mg PO Q3HRS PRN PRN Reason: Pain, Severe Able to Take PO Stop: 09/05/18 20:37 Last Admin: 08/27/18 08:05 Dose: 5 mg Potassium Chloride (Klor-Con) 40 meq PO ONCE ONE Stop: 08/26/18 20:09 Last Admin: 08/26/18 23:25 Dose: Not Given Potassium Chloride (Klor-Con) 40 meq PO ONCE ONE Stop: 08/26/18 23:01 Last Admin: 08/26/18 23:26 Dose: 40 meq Potassium Chloride (Klor-Con) 10 - 40 meq PO ONCE ONE PRN Reason: Protocol Stop: 08/27/18 08:13 Last Admin: 08/27/18 08:50 Dose: 40 meq Departure - Departure Disposition: [facility] [place] In[facility] Acute Clinical Impression: Weakness of both legs, Paresthesias, Unable to ambulate Condition: Fair
[2018-08-26 17:45] LABS: PLATELET COUNT 139 10^3/uL (150-400)
[2018-08-26 18:01] LABS: CREATINE KINASE 106 IU/L (0-156)
[2018-08-26] MEDS ORDERED: POTASSIUM CL 20 MEQ TAB PO ONE ×2 (20:08→23:00)
[2018-08-26] MEDS ORDERED: ACETAMINOPHEN 325 MG TAB PO PRN (20:38)
[2018-08-26] MEDS ORDERED: ONDANSETRON 4 MG/2 ML VIAL IVP PRN (20:38)
[2018-08-26] MEDS ORDERED: HYDROmorphONE/DILAUDID 1 MG/ML INJ IVP PRN (20:38)
[2018-08-26] MEDS ORDERED: LORazepam 2 MG/ML INJ IVP PRN (20:38)
[2018-08-26] MEDS ORDERED: LORazepam 0.5 MG TAB PO PRN (20:38)
[2018-08-26] MEDS ORDERED: PROMETHAZINE HCL 25 MG/ML INJ IVP PRN (20:38)
[2018-08-26] MEDS ORDERED: ONDANSETRON DISINTEGRATING 4 MG TAB PO PRN ×2 (20:38→21:56)
[2018-08-26] MEDS ORDERED: HYDROCODONE/APAP 5/325 TAB PO PRN ×2 (20:38→21:56)
[2018-08-26] MEDS ORDERED: PROTOCOL POTASSIUM 1 DOSE MISC PRN (20:40)
[2018-08-26] MEDS ORDERED: PROTOCOL MAGNESIUM 1 DOSE IV PRN (20:40)
[2018-08-26] MEDS ORDERED: D50W 25 GM/50 ML VIAL IVP PRN (20:41)
--- NOTE | 2018-08-26 21:42 | PDGENHP ---
History and Physical - Chief Complaint BLE weakness, gait instability - History of Present Illness 63 yo F with PMH of poorly controlled DM2, HTN, HLD and depression presenting from home with her with complaints of inability to walk due to bilateral lower extremity weakness. She notes this is associated with numbness of her bilateral feet up to her knees and pain in her bilateral thighs. She feels that her left leg is swollen compared to the right. She states that this has been progressive over some time, she believes weeks, maybe longer. It should be noted patient is a very poor historian and is frequently picking up her cell phone to call someone or text while she speaks to me, at other times insists I look at her feet or bottom for unclear reasons. Her present at bedside attempts to provide some history as well but is also a poor historian and largely is concerned that Gina will not get good sleep in the hospital which she needs to get stronger and therefore should come home. Patient initially told ER doctor she cannot move her legs at all, but while I am in the room with her she is able to use her bilateral feet to scoot up in bed and appears to have equal strength bilaterally. She tells me that her A1c is 18, though her most recent A1c in our computer is 9. History Information - Allergies/Home Medication List Allergies/Adverse Reactions: melatonin Allergy (Intermediate, Verified 08/26/18 16:52) quetiapine fumarate [From Seroquel] Allergy (Intermediate, Verified 08/26/18 16: 52) sulfamethoxazole [From Bactrim] Allergy (Verified 08/26/18 16:52) SLOGHING ORAL MUCOSA trimethoprim [From Bactrim] Allergy (Verified 08/26/18 16:52) SLOGHING ORAL MUCOSA Home Medications: metFORMIN HCL [Glucophage 500 mg (*)] 1,000 mg PO BIDMEAL 05/14/11 [Last Taken 08/26/18 am dose only] Albuterol Hfa Anes Only [Proair Hfa Icu (*)] 1 - 2 puffs IH DAILY PRN 02/02/16 [ Last Taken 08/24/18] Aspirin [Aspirin 81mg (*)] 81 mg PO DAILY 02/02/16 [Last Taken 03/03/17] Cholecalciferol Vit D3 [Vitamin D3 (*)] 1,000 units PO DAILY 02/02/16 [Last Taken 08/26/18] Cyclobenzaprine [Flexeril 10 MG (*)] 10 mg PO DAILY PRN 02/02/16 [Last Taken 10/11] Insulin Aspart [Novolog Flexpen] 0 - 20 unit SC TIDMEAL 02/02/16 [Last Taken 09/10] Lisinopril/Hydrochlorothiazide [Lisinopril-Hctz 10-12.5 mg Tab] 1 each PO DAILY 02/02/16 [Last Taken 08/26/18] Ondansetron Odt [Zofran Odt 4 mg (*)] 8 mg PO DAILY PRN 02/02/16 [Last Taken 05/13] Promethazine HCl [Phenergan 25mg (*)] 25 mg PO DAILY PRN 02/02/16 [Last Taken ] Albuterol [Proventil Neb] 3 ml IH DAILY PRN 03/04/17 [Last Taken 08/26/18] Simvastatin 10 mg PO HS 03/04/17 [Last Taken 08/25/18] Vitamin B Complex [X-Jcvhoxl-Rkxfcjg B-12] 1 each PO DAILY 03/04/17 [Last Taken Unknown] Fluticasone Nasal [Flonase Nasal [place] (RX)] 1 sprays NASAL DAILY 08/26/18 [ Last Taken Unknown] Furosemide [Lasix 20 MG (*)] 20 mg PO DAILY 08/26/18 [Last Taken 08/26/18] Insulin Glargine,Hum.rec.anlog [Basaglar Kwikpen U-100] 55 unit SQ HS 08/26/18 [ Last Taken 08/25/18] Potassium Cl [Klor-Con 20 meq (*)] 20 meq PO BID 08/26/18 [Last Taken 08/25/18] Ranitidine HCl [Zantac] 150 mg PO BID 08/26/18 [Last Taken 08/26/18 am dose] I have personally reviewed and updated: family history, medical history, social history, surgical history - Past Medical History diabetes type 2 (poorly controlled), hypertension, hyperlipidemia, psychiatric history (depression, at times severe) - Surgical History Reports: cholecystectomy Additional surgical history: tonsillectomy. c section x 2 - Family History Positive for: non-pertinent - Social History Smoking Status: Current every day smoker Alcohol Use: Occasionally Drug Use: None Additional social history: lives with her in a trailer in [facility] Review of Systems Review of Systems: ROS: 10pt was reviewed & negative except for what was stated in HPI & below Physical Exam Physical Exam: Temp Pulse Resp BP Pulse Ox 36.8 C 82 18 112/69 92 08/26/18 16:54 08/26/18 20:00 08/26/18 20:00 08/26/18 20:00 08/26/18 20:00 Constitutional: chronically ill appearing, obese Eyes: PERRL, anicteric sclera Ears, Nose, Mouth, Throat: hearing normal, poor dentition Cardiovascular: regular rate and rhythym, no murmur, rub, or gallop, edema ( trace ble edema) Respiratory: no respiratory distress, no rales or rhonchi Gastrointestinal: normoactive bowel sounds, soft, non-tender abdomen Genitourinary: no bladder tenderness Skin: warm, normal color Musculoskeletal: generalized weakness, No asymmetric calves Neurologic: AAOx3 Psychiatric: poor insight, poor judgement, No thought process linear Lab Data & Imaging Review 08/26/18 17:35 08/26/18 17:35 WBC 7.15 10^3/uL (3.80-9.50) 08/26/18 17:35 RBC 3.88 10^6/uL (4.18-5.33) L 08/26/18 17:35 Hgb 11.2 g/dL (12.6-16.3) L 08/26/18 17:35 Hct 33.1 % (38.0-47.0) L 08/26/18 17:35 MCV 85.3 fL (81.5-99.8) 08/26/18 17:35 MCH 28.9 pg (27.9-34.1) 08/26/18 17:35 MCHC 33.8 g/dL (32.4-36.7) 08/26/18 17:35 RDW 13.8 % (11.5-15.2) 08/26/18 17:35 Plt Count 139 10^3/uL (150-400) L 08/26/18 17:35 MPV 10.1 fL (8.7-11.7) 08/26/18 17:35 Neut % (Auto) 68.9 % (39.3-74.2) 08/26/18 17:35 Lymph % (Auto) 23.6 % (15.0-45.0) 08/26/18 17:35 [place] % (Auto) 6.0 % (4.5-13.0) 08/26/18 17:35 Eos % (Auto) 1.0 % (0.6-7.6) 08/26/18 17:35 Baso % (Auto) 0.1 % (0.3-1.7) L 08/26/18 17:35 Nucleat RBC Rel Count 0.0 % (0.0-0.2) 08/26/18 17:35 Absolute Neuts (auto) 4.92 10^3/uL (1.70-6.50) 08/26/18 17:35 Absolute Lymphs (auto) 1.69 10^3/uL (1.00-3.00) 08/26/18 17:35 Absolute Monos (auto) 0.43 10^3/uL (0.30-0.80) 08/26/18 17:35 Absolute Eos (auto) 0.07 10^3/uL (0.03-0.40) 08/26/18 17:35 Absolute Basos (auto) 0.01 10^3/uL (0.02-0.10) L 08/26/18 17:35 Absolute Nucleated RBC 0.00 10^3/uL (0-0.01) 08/26/18 17:35 Immature Gran % 0.4 % (0.0-1.1) 08/26/18 17:35 Immature Gran # 0.03 10^3/uL (0.00-0.10) 08/26/18 17:35 Sodium 133 mEq/L (135-145) L 08/26/18 17:35 Potassium 3.3 mEq/L (3.5-5.2) L 08/26/18 17:35 Chloride 96 mEq/L (97-110) L 08/26/18 17:35 Carbon Dioxide 29 mEq/l (22-31) 08/26/18 17:35 Anion Gap 8 mEq/L (6-14) 08/26/18 17:35 BUN 19 mg/dL (7-23) 08/26/18 17:35 Creatinine 0.6 mg/dL (0.6-1.0) 08/26/18 17:35 Estimated GFR > 60 08/26/18 17:35 Glucose 440 mg/dL (70-100) H 08/26/18 17:35 Hemoglobin A1c 12.0 % (4.0-6.0) H 08/26/18 17:35 Estim Average Glucose 298 mg/dL (68-126) H 08/26/18 17:35 Calcium 7.6 mg/dL (8.5-10.4) L 08/26/18 17:35 Creatine Kinase 106 IU/L (0-156) 08/26/18 17:35 Urine Color PALE YELLOW 08/26/18 19:55 Urine Appearance CLEAR 08/26/18 19:55 Urine pH 7.0 (5.0-7.5) 08/26/18 19:55 Ur Specific [place] 1.023 (1.002-1.030) 08/26/18 19:55 Urine Protein NEGATIVE (NEGATIVE) 08/26/18 19:55 Urine Ketones NEGATIVE (NEGATIVE) 08/26/18 19:55 Urine Blood NEGATIVE (NEGATIVE) 08/26/18 19:55 Urine Nitrate NEGATIVE (NEGATIVE) 08/26/18 19:55 Urine Bilirubin NEGATIVE (NEGATIVE) 08/26/18 19:55 Urine Urobilinogen 2.0 EU (0.2-1.0) H 08/26/18 19:55 Ur Leukocyte Esterase NEGATIVE (NEGATIVE) 08/26/18 19:55 Urine RBC NONE SEEN /hpf (0-3) 08/26/18 19:55 Urine WBC 0-1 /hpf (0-3) 08/26/18 19:55 Ur Epithelial Cells TRACE /lpf (NONE-1+) 08/26/18 19:55 Ur Culture Indicated? NOT INDICATED (NI) 08/26/18 19:55 Urine Glucose 3+ (NEGATIVE) H 08/26/18 19:55 Visualized and Interpreted Chest x-ray results: Yes Chest X-Ray results: no infiltrate Visualized and Interpreted imaging results: Yes Interpretation: head CT: nothing acute. T/L spine MRI: mild degenerative disc disease, mild dextroscoliosis, nothing acute Visualized and Interpreted EKG results: Yes EKG Interpretation: Positive for: normal sinsus rhythm EKG additional interpertation: low voltage Assessment & Plan Assessment: 63 yo F with PMH of DM2, HTN, HLD and depression presenting with c/o bilateral lower extremity numbness and weakness # BLE weakness/gait instability: does have e/o some generalized weakness but non focal and improved since her initial exam, suspect that some of this is volitional as when patient needed to move up on the bed she was able to use her feet and legs to do so. Perhaps this is more related to neuropathy rather than weakness, imaging including t/l spine MRI negative. Will have pt/ot evaluate, will ask neurology to eval in the am. Has had recent TSH/b12 that were wnl. # uncontrolled DM2: with A1c today of 12 and patient notes it has been as high as 18 recently (unclear if that is accurate however) resumed home glargine and metformin and started SS lispro, will monitor # peripheral neuropathy: likely 2/2 above, unclear if this is the main etiology for her weakness and gait instability but certainly contributing, pt/ot, patient denies any pain associated with this currently. # hypokalemia: on chronic repletion, will start electrolyte protocol # anemia: new from prior, does not give hx suggestive of active bleeding, will repeat in am, patient likely should have screening colonoscopy if has not had in the past, will check iron studies # depression/anxiety: continue her op meds including bupropion, xanax, risperidone. She has had issues with severe depression in the past requiring IP psych stay and ECT, she does have an unusual affect and difficulty maintaining linear thought process--unclear if due to mental health issues or cognitive issues, will check drug screen as well # HTN: BP currently normal, continue lisinopril/hctz # IP status, will require > 48 hours stay for lebron/mgmt of above Patient new to my care. Old records reviewed and summarized as above. Care plan reviewed with ER doctor as above.
[2018-08-26] MEDS ORDERED: ALBUTEROL 3 ML DEYVIAL IH PRN (21:56)
[2018-08-26] MEDS ORDERED: ALBUTEROL 60 PUFFS/8 GM MDI IH PRN (21:56)
[2018-08-26] MEDS: TEMAZEPAM 15 MG CAP PO SCH (23:26)
[2018-08-26] MEDS: INSULIN GLARGINE 100 UNITS/ML UNIT SC SCH (23:27)
[2018-08-26] MEDS: CYCLOBENZAPRINE 10 MG TAB PO PRN (23:36)
[2018-08-26] MEDS: oxyCODONE IR 5 MG TAB PO PRN (23:36)
--- NOTE | 2018-08-26 23:56 | CPEKG ---
Test Reason : OPEN Blood Pressure : / mmHG Vent. Rate : 087 BPM Atrial Rate : 087 BPM P-R Int : 135 ms QRS Dur : 088 ms QT Int : 397 ms P-R-T Axes : 095 078 070 degrees QTc Int : 478 ms Sinus rhythm Low voltage, precordial leads Confirmed by Mary Correa ([id number]) on 08/26/2018 11:56:15 PM Referred By: Mary Correa Confirmed By:Mary Correa
[2018-08-27 05:20] LABS: PLATELET COUNT 134 10^3/uL (150-400)
[2018-08-27] MEDS: INSULIN LISPRO 100 UNIT/ML SC SCH ×3 (08:01→17:46)
[2018-08-27] MEDS: ALPRAZolam 1 MG TAB PO SCH ×2 (08:05→20:54)
[2018-08-27] MEDS: oxyCODONE IR 5 MG TAB PO PRN (08:05)
[2018-08-27] MEDS ORDERED: POTASSIUM CL 10 MEQ TAB PO ONE (08:12)
[2018-08-27] MEDS ORDERED: MAGNESIUM SULF 2 GM/WATER 50 ML IV ONE (08:13)
[2018-08-27] MEDS: LISINOPRIL/HCTZ 10/12.5 MG 1 EA TAB PO SCH (08:46)
[2018-08-27] MEDS: ASPIRIN 81 MG CHEWABLE TAB PO SCH (08:48)
[2018-08-27] MEDS: FAMOTIDINE 20 MG TAB PO SCH ×2 (08:48→20:55)
[2018-08-27] MEDS: FUROSEMIDE 20 MG TAB PO SCH (08:48)
[2018-08-27] MEDS: VITAMIN B COMPLEX 1 EA CAP/TAB PO SCH (08:49)
[2018-08-27] MEDS: buPROPion XL 150 MG TAB PO SCH ×2 (08:49→20:54)
[2018-08-27] MEDS: CHOLECALCIFEROL VIT D3 1,000 UNITS TAB PO SCH (08:49)
[2018-08-27] MEDS: metFORMIN HCL 500 MG TAB PO SCH ×2 (08:49→17:45)
[2018-08-27] MEDS: risperiDONE 0.25 MG TAB PO SCH ×2 (08:50→20:56)
[2018-08-27] MEDS: ENOXAPARIN 40 MG/0.4 ML SYR SC SCH (08:50)
[2018-08-27] MEDS: FLUTICASONE NASAL 120 SPRAYS/16 GM MDI EACHNARE SCH (08:51)
--- NOTE | 2018-08-27 09:26 | NEUROPROG ---
Assessment: [id number] - Neurology Consult: - CC: Dr. Reyes consulted neurology for leg weakness. Results placed in EMR for her review. - HPI: 08/27/18: Pt with PMHx of poorly controlled diabetes, HTN, HLD, depression came to [facility] ER on 08/26/18 with complaints of bilateral leg weakness. It was associated with numbness in her feet up to her knees and leg pain. She feels this has been progressively worsening over time. H1AC noted at 12 and glucose noted to be 440. Head CT and T/L spine MRI wo con are generally unremarkable for significant abnormality. I initially saw pt on 08/27/18. Her neurologic exam showed generalized weakness and some focal weakness in both legs (pt gives poor effort so problems getting idea of full extent of weakness). I suspect her symptoms are most likely from diabetic neuropathy given poorly controlled diabetes and distribution of weakness. I would recommend checking a brain MRI to ensure no stroke but if this is unremarkable then I would recommend focusing on diabetic control. - PMHx: DM2, HTN, HLD, depression, choli, csect x2, tonsillectomy - SHx: +tobacco FHx: NC - ROS: Pt denied acute fever, total vision loss, active severe chest pain, respiratory failure, total body severe rash, total bowel/bladder incontinence, psychosis, active seizures, or active bleeding - O: VS reviewed General: Alert Eyes: Fundoscopic exam not able to visualize optic disks CV: Heart RRR, no murmur, no carotid bruit Lungs: Clear to auscultation bilaterally, no rhonchi or rales Neuro: - Mental: . Oriented x person/place/date . concentration appears normal . speech fluency/comprehension normal . memory appears normal . fund of knowledge appear intact - Cranial Nerves: . II: PERRL, VFFTC . III/IV/: EOMI, no nystagmus, normal smooth pursuits, no Ptosis . V: facial sensation intact to LT . VII: face symmetric to eye closure and smile . VIII: hearing intact to conversation . IX/X: uvula raises symmetrically . XI: SCM 5/5 B/L strength . XII: tongue protrudes midline w/nl strength - Motor: . Tone: normal tone in all 4 extremity . Strength: generalized 5-/5 weakness but legs are weak bilaterally - Reflexes: B/L bic/BR/patella 2/4, B/L ach trace/4 - Sensory: all 4 extremity intact to light touch - Coord: CHRISTOPHER wnl - Gait: deferred - Labs: 08/26/18- CBC Hct 33.1L Plt 139L CMP Na 133L K 3.3L Cl 96L GLuc 440H Ca 7.6L Alk Phos 138H CK 106, H1AC 12; Utox + benzos - Rads: 08/26/18- Head CT wo: no acute findings (I personally visualized the images on 08/27) 08/26/18- Thoracic MRI wo: Mild dextroscoliosis of the thoracic spine; otherwise negative exam, without evidence of disk herniation or abnormal thoracic cord signal. 08/26/18- Lumbar MRI wo: Mild features of degenerative disk disease at the lower lumbar spine. There is mild-moderate left neural foraminal narrowing at L5-S1. No discrete disk prolapse or neural impingement identified. - Assessment: 1. Bilateral leg weakness likely from diabetic neuropathy - Plan: - Brain MRI wo con to exclude stroke - Optimize control of diabetes is best way to treat diabetic neuropathy - PT/OT to determine any rehab needs Objective: Vital Signs Temp Pulse Resp BP Pulse Ox 36.6 C 91 26 H 122/82 H 90 L 08/27/18 07:25 08/27/18 08:47 08/27/18 07:25 08/27/18 08:47 08/27/18 07:25 Laboratory Results 08/27/18 04:20 08/27/18 04:20 08/26/18 08/27/18 08/28/18 05:59 05:59 05:59 Intake Total 120 Output Total 200 Balance -80 Allergies/Adverse Reactions: melatonin Allergy (Intermediate, Verified 08/26/18 16:52) quetiapine fumarate [From Seroquel] Allergy (Intermediate, Verified 08/26/18 16: 52) sulfamethoxazole [From Bactrim] Allergy (Verified 08/26/18 16:52) SLOGHING ORAL MUCOSA trimethoprim [From Bactrim] Allergy (Verified 08/26/18 16:52) SLOGHING ORAL MUCOSA
--- NOTE | 2018-08-27 11:47 | ASMTCMCOM ---
CM Note CM Note Notes: Pt is a 63 y/o female admitted for BLE weakness and gait instability. CM spoke to Lorraine from PT and she is recommending SNF. CM met w/ pt for dispo planning. CM provided pt w/ senior blue book. Pt is agreeable to making a referral to [facility]. Pt made it very clear that she wants to make sure that the SNF is close to her house. Referral sent. CM submitted triggered pasrr to Joseluis Gutierrez. CM to follow. Plan: SNF Date Signed: 08/27/2018 11:47 AM Electronically Signed By:COOKIE Hagan
--- NOTE | 2018-08-27 13:47 | HOSPPROG ---
Hospitalist Progress Note Assessment/Plan: 63 year old femle with pmh of DM, HTN, HLD, depression admitted with bilateral lower extremity weakness. BLE weakness/gait instability: I have reviewed the MRI and find nothing that can cause her constellation of symptoms. Neurology has been consulted who feels that symptoms likely represent neuropathy related to poorly controlled DM but would like a non contrast MRI to rule out stroke. -MRI brain -manage underlying DM -neurology consulted. -PT/OT uncontrolled DM2: with A1c of 12 on admission and patient notes it has been as high as 18 recently (unclear if that is accurate however) resumed home glargine and metformin and started SS lispro, will monitor peripheral neuropathy: likely 2/2 above, unclear if this is the main etiology for her weakness and gait instability but certainly contributing, pt/ot, patient denies any pain associated with this currently. hypokalemia: low again this morning. gave 40PO of KDUR. recheck. anemia: no evidence of bleed. iron studies pending. depression/anxiety: Continue home wellbutrin, xanax, risperdal. She appears to be on large doses of narcotics and benzos and this morning after getting home medications became lethargic and difficult to arouse. I backed off on a lot of her narcotics and benzos. HTN: BP currently normal, continue lisinopril/hctz Fluids- PO Lytes- low K, repleting Nutrition0 carb consistent Cor- Full IP status, will require > 48 hours stay for lebron/mgmt of above Patient new to my care. Old records reviewed and summarized as above. Care plan reviewed with ER doctor as above. Subjective: feels better this morning. pain not an issue this morning. Objective: Vital Signs Temp Pulse Resp BP Pulse Ox 36.7 C 80 18 103/71 90 L 08/27/18 11:52 08/27/18 11:52 08/27/18 11:52 08/27/18 11:52 08/27/18 11:52 Laboratory Results 08/27/18 04:20 08/27/18 04:20 08/26/18 08/27/18 08/28/18 05:59 05:59 05:59 Intake Total 120 Output Total 200 Balance -80 - Physical Exam Constitutional: no apparent distress, appears nourished, not in pain Eyes: PERRL, anicteric sclera, EOMI Ears, Nose, Mouth, Throat: moist mucous membranes, hearing normal, ears appear normal, no oral mucosal ulcers Cardiovascular: regular rate and rhythym, no murmur, rub, or gallop Respiratory: no respiratory distress, no rales or rhonchi, clear to auscultation Gastrointestinal: normoactive bowel sounds, soft, non-tender abdomen, no palpable masses Genitourinary: no bladder fullness, no bladder tenderness, no renal bruits Skin: no rashes or abrasions, no fluctuance, no induration Musculoskeletal: full muscle strength, no muscle tenderness, normal joint ROM Neurologic: AAOx3, sensation intact bilaterally Psychiatric: interacting appropriately, not anxious, not encephalopathic, thought process linear Lymph, Heme, Immunologic: no cervical LAD, no supraclavicular LAD ICD10 Worksheet Patient Problems: Problems Problem Status Onset Erysipelas Acute Hyperglycemia Acute Nausea & vomiting Acute Severe depression Acute
--- NOTE | 2018-08-27 18:27 | PDMN ---
Medical Necessity Medical necessity: Pt meets IP criteria per MD & MCG M-130 Diabetes; est los >2 mn for eval/tx of hyperglycemia, hypokalemia, difficulty maintaining linear thought process & BLE numbness/weakness w/inability to ambulate; requiring further workup/monitoring, electrolyte protocol, Neurology consult & therapies; hx poorly controlled diabetes, peripheral neuropathy; per H&P & order 08/26/18
[2018-08-27] MEDS: DOCUSATE SODIUM 100 MG CAP PO SCH (20:55)
[2018-08-27] MEDS: PRAVASTATIN SODIUM 20 MG TAB PO SCH (20:55)
[2018-08-27] MEDS: TEMAZEPAM 15 MG CAP PO SCH (20:56)
[2018-08-27] MEDS: INSULIN GLARGINE 100 UNITS/ML UNIT SC SCH (22:08)
[2018-08-28] MEDS: INSULIN LISPRO 100 UNIT/ML SC SCH ×3 (07:52→17:39)
[2018-08-28] MEDS: ASPIRIN 81 MG CHEWABLE TAB PO SCH (09:29)
[2018-08-28] MEDS: CHOLECALCIFEROL VIT D3 1,000 UNITS TAB PO SCH (09:29)
[2018-08-28] MEDS: metFORMIN HCL 500 MG TAB PO SCH ×2 (09:29→17:39)
[2018-08-28] MEDS: ENOXAPARIN 40 MG/0.4 ML SYR SC SCH (09:29)
[2018-08-28] MEDS: FUROSEMIDE 20 MG TAB PO SCH (09:30)
[2018-08-28] MEDS: buPROPion XL 150 MG TAB PO SCH ×2 (09:30→21:03)
[2018-08-28] MEDS: VITAMIN B COMPLEX 1 EA CAP/TAB PO SCH (09:30)
[2018-08-28] MEDS: LISINOPRIL/HCTZ 10/12.5 MG 1 EA TAB PO SCH (09:30)
[2018-08-28] MEDS: risperiDONE 0.25 MG TAB PO SCH ×2 (09:30→22:19)
[2018-08-28] MEDS: ALPRAZolam 1 MG TAB PO SCH ×2 (09:30→21:02)
[2018-08-28] MEDS: FAMOTIDINE 20 MG TAB PO SCH ×2 (09:31→21:03)
[2018-08-28] MEDS: FLUTICASONE NASAL 120 SPRAYS/16 GM MDI EACHNARE SCH (09:36)
--- NOTE | 2018-08-28 09:36 | NEUROPROG ---
Assessment: [id number] - Neurology Consult: - CC: F/U for diabetic Neuropathy - Narrative Summary: 08/27/18: Pt with PMHx of poorly controlled diabetes, HTN, HLD, depression came to [facility] ER on 08/26/18 with complaints of bilateral leg weakness. It was associated with numbness in her feet up to her knees and leg pain. She feels this has been progressively worsening over time. H1AC noted at 12 and glucose noted to be 440. Head CT and T/L spine MRI wo con are generally unremarkable for significant abnormality. I initially saw pt on 08/27/18. Her neurologic exam showed generalized weakness and some focal weakness in both legs (pt gives poor effort so problems getting idea of full extent of weakness). I suspect her symptoms are most likely from diabetic neuropathy given poorly controlled diabetes and distribution of weakness. I would recommend checking a brain MRI to ensure no stroke but if this is unremarkable then I would recommend focusing on diabetic control. - HPI: F/U 08/28/18. Brain MRI wo did not show any stroke or acute changes so I suspect her leg weakness and numbness is from diabetic neuropathy. Treatment is addressing underlying diabetes. No further neurologic w/u needed, neurology will sign off. - PMHx: DM2, HTN, HLD, depression, choli, csect x2, tonsillectomy - SHx: +tobacco FHx: NC - ROS: Pt denied acute fever, total vision loss, active severe chest pain, respiratory failure, total body severe rash, total bowel/bladder incontinence, psychosis, active seizures, or active bleeding - Labs: 08/26/18- CBC Hct 33.1L Plt 139L CMP Na 133L K 3.3L Cl 96L GLuc 440H Ca 7.6L Alk Phos 138H CK 106, H1AC 12; Utox + benzos - Rads: 08/26/18- Head CT wo: no acute findings 08/26/18- Thoracic MRI wo: Mild dextroscoliosis of the thoracic spine; otherwise negative exam, without evidence of disk herniation or abnormal thoracic cord signal. 08/26/18- Lumbar MRI wo: Mild features of degenerative disk disease at the lower lumbar spine. There is mild-moderate left neural foraminal narrowing at L5-S1. No discrete disk prolapse or neural impingement identified. 3/5/19- Brain MRI wo: no acute changes, no stroke - Assessment: 1. Bilateral leg weakness likely from diabetic neuropathy - Plan: - Optimize control of diabetes is best way to treat diabetic neuropathy - PT/OT to determine any rehab needs - Neurology will sign off - 35 min spent with patient, majority of time counseling on prognosis and treatment plan Objective: Vital Signs Temp Pulse Resp BP Pulse Ox 36.8 C 86 17 103/80 93 08/28/18 07:25 08/28/18 07:25 08/28/18 07:25 08/28/18 09:30 08/28/18 07:25 Laboratory Results 08/27/18 04:20 08/28/18 04:18 08/27/18 08/28/18 08/29/18 05:59 05:59 05:59 Intake Total 120 700 Output Total 200 1250 Balance -80 -550 Allergies/Adverse Reactions: melatonin Allergy (Intermediate, Verified 08/26/18 16:52) quetiapine fumarate [From Seroquel] Allergy (Intermediate, Verified 08/26/18 16: 52) sulfamethoxazole [From Bactrim] Allergy (Verified 08/26/18 16:52) SLOGHING ORAL MUCOSA trimethoprim [From Bactrim] Allergy (Verified 08/26/18 16:52) SLOGHING ORAL MUCOSA
[2018-08-28] MEDS ORDERED: MAGNESIUM SULF 2 GM/WATER 50 ML IV ONE (10:10)
--- NOTE | 2018-08-28 13:37 | HOSPPROG ---
Hospitalist Progress Note Assessment/Plan: 63 year old femle with pmh of DM, HTN, HLD, depression admitted with bilateral lower extremity weakness. First encounter, chart reviewed. *BLE weakness/gait instability -neurology says it is r/t diabetic neuropathy -MRI shows no stroke -encouraged to consider decreasing her doses of Xanax and narcotics, she does not want to do this -therapies recommending SNF *uncontrolled DM2 - A1c of 12 on admission and patient notes it has been as high as 18 recently -resumed home meds and sliding scale *peripheral neuropathy *hypokalemia: low again this morning. gave 40PO of KDUR. recheck. *anemia: no evidence of bleed. iron studies pending. *depression/anxiety -occurred after losing her daughter 8 years ago -Wellbutrin, Xanax, narcotics, Risperdal *HTN: -lisinopril/hctz *plan: she isn't sure she is willing to go to a SNF, wants to think about it. Subjective: Gina said she is feeling weak in her legs, but isn't sure she will go to a SNF. Objective: Vital Signs Temp Pulse Resp BP Pulse Ox 36.8 C 86 21 H 109/71 94 08/28/18 11:40 08/28/18 11:40 08/28/18 11:40 08/28/18 11:40 08/28/18 11:40 Laboratory Results 08/27/18 04:20 08/28/18 04:18 08/27/18 08/28/18 08/29/18 05:59 05:59 05:59 Intake Total 120 700 Output Total 200 1250 300 Balance -80 -550 -300 - Physical Exam Constitutional: appears nourished, not in pain, chronically ill appearing, obese Eyes: PERRL Ears, Nose, Mouth, Throat: hearing normal Cardiovascular: regular rate and rhythym, no murmur, rub, or gallop Respiratory: no respiratory distress, reduced air movement Gastrointestinal: normoactive bowel sounds Skin: warm Musculoskeletal: generalized weakness Neurologic: AAOx3 Psychiatric: poor insight ICD10 Worksheet Patient Problems: Problems Problem Status Onset Erysipelas Acute Hyperglycemia Acute Nausea & vomiting Acute Severe depression Acute
[2018-08-28] MEDS: DOCUSATE SODIUM 100 MG CAP PO SCH (21:02)
[2018-08-28] MEDS: PRAVASTATIN SODIUM 20 MG TAB PO SCH (21:02)
[2018-08-28] MEDS: TEMAZEPAM 15 MG CAP PO SCH (21:03)
[2018-08-28] MEDS: INSULIN GLARGINE 100 UNITS/ML UNIT SC SCH (22:18)
[2018-08-29] MEDS: CYCLOBENZAPRINE 10 MG TAB PO PRN (01:14)
[2018-08-29 07:25] VITALS: BP 106/78
[2018-08-29] MEDS: VITAMIN B COMPLEX 1 EA CAP/TAB PO SCH (07:32)
[2018-08-29] MEDS: CHOLECALCIFEROL VIT D3 1,000 UNITS TAB PO SCH (07:32)
[2018-08-29] MEDS: FAMOTIDINE 20 MG TAB PO SCH (07:33)
[2018-08-29] MEDS: buPROPion XL 150 MG TAB PO SCH (07:33)
[2018-08-29] MEDS: metFORMIN HCL 500 MG TAB PO SCH (07:33)
[2018-08-29] MEDS: FLUTICASONE NASAL 120 SPRAYS/16 GM MDI EACHNARE SCH (07:34)
[2018-08-29] MEDS: ENOXAPARIN 40 MG/0.4 ML SYR SC SCH (07:34)
[2018-08-29] MEDS: FUROSEMIDE 20 MG TAB PO SCH (07:34)
[2018-08-29] MEDS: INSULIN LISPRO 100 UNIT/ML SC SCH ×2 (07:47→12:17)
[2018-08-29] MEDS: ALPRAZolam 1 MG TAB PO SCH (08:30)
[2018-08-29] MEDS: ASPIRIN 81 MG CHEWABLE TAB PO SCH (08:31)
[2018-08-29] MEDS: LISINOPRIL/HCTZ 10/12.5 MG 1 EA TAB PO SCH (08:39)
[2018-08-29] MEDS ORDERED: MAGNESIUM SULF 2 GM/WATER 50 ML IV ONE (08:39)
[2018-08-29] MEDS: risperiDONE 0.25 MG TAB PO SCH (08:40)
--- NOTE | 2018-08-29 08:51 | HOSPPROG ---
Hospitalist Progress Note Assessment/Plan: 63 year old femle with pmh of DM, HTN, HLD, depression admitted with bilateral lower extremity weakness. *BLE weakness/gait instability -neurology says it is r/t diabetic neuropathy -MRI shows no stroke -encouraged to consider decreasing her doses of Xanax and narcotics, she does not want to do this -therapies recommending SNF *uncontrolled DM2 - A1c of 12 on admission and patient notes it has been as high as 18 recently -resumed home meds and sliding scale -family bringing in food, glucoses high due to her diet *peripheral neuropathy *hypokalemia -resolved *anemia -iron def *depression/anxiety -occurred after losing her daughter 8 years ago -Wellbutrin, Xanax, narcotics, Risperdal *HTN: -lisinopril/hctz *plan: recommended SNF multiple times, she only wants to go home Subjective: Gina is feeling fine, wants to go home, says she can manage her glucoses well and is motivated. Objective: Vital Signs Temp Pulse Resp BP Pulse Ox 36.7 C 80 16 106/78 93 08/29/18 07:24 08/29/18 07:24 08/29/18 07:24 08/29/18 07:24 08/29/18 07:24 Laboratory Results 08/27/18 04:20 08/29/18 05:16 08/28/18 08/29/18 08/30/18 05:59 05:59 05:59 Intake Total 700 400 Output Total 1250 300 Balance -550 100 - Physical Exam Constitutional: not in pain, chronically ill appearing, obese Eyes: PERRL Ears, Nose, Mouth, Throat: hearing normal Respiratory: no respiratory distress Skin: warm Musculoskeletal: generalized weakness Neurologic: AAOx3 Psychiatric: interacting appropriately ICD10 Worksheet Patient Problems: Problems Problem Status Onset Paresthesias Acute Unable to ambulate Acute Weakness of both legs Acute Erysipelas Acute Hyperglycemia Acute Nausea & vomiting Acute Severe depression Acute
--- NOTE | 2018-08-29 11:36 | ASDISCHSUM ---
Discharge Information Plan Status:Home with Home Health Medically Cleared to Leave:08/28/2018 Discharge Date:08/28/2018 CM D/C Disposition: ADT D/C Disposition: Projected Discharge Date:08/29/2018 11:00 AM Transportation at D/C: Discharge Delay Reason: Follow-Up Date:08/29/2018 11:00 AM Discharge Slot: Final Diagnosis: Placement Information Referral Type:*[facility]/SNF Referral ID:[id number] Provider Name: Address 1: Phone Number: Address 2: Fax Number: City: Selection Factors: State: Referral Type:*Home Health Care Services Referral ID:[id number] Provider Name:[facility] Address 1:[address] Address 2: City:[place] Selection Factors: State:[place] Patient Contact Information Contact Name:JACQUES Relationship: Address:[address] [place] [address] Work Phone: City:[place] Alternate Phone: [facility]/Zip Code:[place] [address] Email: Financial Information Financial Class:Medicare Primary Plan Desc:MEDICARE INPATIENT Primary Plan Number:[id number] Secondary Plan Desc:MED[place] Secondary Plan Number:[id number] Assessment Information LACE LACE Length of stay for Answers: 3 days current admission Acuity / Level of Answers: Yes Care: Did the patient have an inpatient admission? Comorbidities - select Answers: Diabetes (uncontrolled or all that apply controlled) Opioid dependence / Chronic pain Other Notes: HTN; HLD # of Emergency department Answers: 1-2 visits in the last 6 months Social determinants Answers: Mental health diagnosis (anxiety, depression, pers onality disorders, etc.) Score: 16 Date Signed: 08/29/2018 11:36 AM Electronically Signed By:COOKIE Hagan [facility] CM Progress Note CM Note CM Note Notes: Pt is a 63 y/o female admitted for BLE weakness and gait instability. CM spoke to Lorraine from PT and she is recommending SNF. CM met w/ pt for dispo planning. CM provided pt w/ [facility] blue book. Pt is agreeable to making a referral to [facility]. Pt made it very clear that she wants to make sure that the SNF is close to her house. Referral sent. CM submitted triggered pasrr to Joseluis Gutierrez. CM to follow. Plan: SNF Date Signed: 08/27/2018 11:47 AM Electronically Signed By:COOKIE Hagan Case Management Discharge Plan Note Case Management Discharge Discharge Order Complete? Answers: Yes Patient to Obtain Answers: Independently Medications Transportation Arranged Answers: Family/Friends EMTALA Complete Answers: No Case Management Transport Answers: No Form Complete Faxed Final Orders Answers: Yes Agency/Facility Transfer Answers: Yes Report Printed & Faxed to Receiving Agency Family Notified Answers: No Discharge Comments Notes: Pts case discussed w/ Estefany Gamez NP. CM met w/ pt for dispo planning. Pt is refusing to go to SNF although that is what therapies are recommending. Pt is being d/c'd today. Pt is agreeable to having HC. Referral sent to [facility]. [facility] is able to accept. CM confirmed pts address and phone number. Pt reports that her will be coming to pick her up. CM available for changes. Plan: [facility]; PT, OT, RN Date Signed: 08/29/2018 11:35 AM Electronically Signed By:COOKIE Hagan Intervention Information Intervention Type:*Incorrect Registration Date of Service:08/26/2018 12:26 PM Patient Type:Inpatient Staff Member:KAYDEN Woodson Courtney Hours: Discipline: Severity: Comment: Intervention Type:*IM-Signed Date of Service:08/29/2018 10:25 AM Patient Type:Inpatient Staff Member:Emily Fowler Hours: Discipline: Severity: Comment:
--- NOTE | 2018-08-29 12:26 | PDIAF ---
- Diagnosis Diagnosis: diabetic neuropathy w weakenss Code Status: Full Code - Medication Management Discharge Medications: electronically signed and located in the Home Medication List. - Orders Services needed: Home Care, Registered Nurse, Physical Therapy, Occupational Therapy Home Care Face to Face: I certify that this patient was under my care and that I had the required [id number] encounter meeting the encounter requirements on the discharge day. My findings support the fact that the patient is homebound as defined in Home Care Face to Face Continued: CMS Chapter 7 Medicare Benefits Manual 30.1.1 , The condition of the patient is such that there exists a normal inability to leave home and consequently, leaving home would require a considerable and taxing effort. Diet Recommendation: ADA 2000 consistent carb Diet Texture: Regular Texture Diet Additional Instructions: recommending to cut back on Xanax; can cause gait instability f/u with your psychiatrist; think you need more support avenues in regards to losing your daughter stay on low carbohydrate diet, check glucose before meals follow up with your PCP - Follow Up Care Current Providers and Referrals: Toney Galaviz MD [Primary Care Provider] - As per Instructions
--- NOTE | 2018-08-29 13:02 | GDS ---
[f rep st] DISCHARGE SUMMARY DISCHARGE DIAGNOSES: 1. Bilateral extremity weakness with gait instability related to diabetic neuropathy. 2. Uncontrolled diabetes type 2. 3. Peripheral neuropathy. 4. Hypokalemia. 5. Anemia. 6. Depression, anxiety. 7. Hypertension. CONSULTATION: Dr. Gilmar Rosado. HISTORY OF PRESENT ILLNESS: Briefly, this patient is a 63-year-old woman with poorly controlled diabetes, hypertension, hyperlipidemia, and depression, who came to the emergency room on August 26 with complaints of bilateral leg weakness. She also had some numbness to her feet. This has been worsening over time. Her A1c was 12. Her glucose was [address] A [address] and MRI of the spine were overall without any significant abnormality. A brain MRI was performed which did not show a stroke. Neurology noted her symptoms were related to diabetic neuropathy, and recommendation to get her glucoses better controlled. She was seen and evaluated by Physical therapy, Occupational Therapy. Their recommendation was for her to go to a residential facility for strengthening. She has declined this. In addition, the patient is on multiple medications causing her weakness, recommending she cut back on these. She does not want to at this time. She has some significant depression due to the loss of her daughter approximately 8 years ago. HOSPITAL COURSE BY PROBLEM: 1. Bilateral extremity weakness with gait instability. This is related to diabetic neuropathy. Will order home care, PT and OT to work with her. 2. Uncontrolled diabetes type 2. I have encouraged her to stay on ADA diet. Her glucoses have been difficult to control. Family members have been bringing her food in. 3. Peripheral neuropathy, ongoing. 4. Hypokalemia, resolved. 5. Anemia, iron deficiency. 6. Depression, anxiety. She is on Wellbutrin, Xanax, and Risperdal. Encouraged her to talk to her psychiatrist to look at other options for treatment. 7. Hypertension. She is on lisinopril and hydrochlorothiazide. DISCHARGE CONDITION: Stable. Blood pressure is 106/78, heart rate of 80, respiratory rate of 18, O2 sats on room air 93%, temperature 36.7 Celsius. MEDICATIONS AT DISCHARGE: Please see the EMR. DISCHARGE INSTRUCTIONS: 1. To stay on ADA diet. 2. Check her glucoses before all meals. 3. Recommending she follow up with her psychiatrist to get more support, maybe she would benefit from some type of support group in regard to the loss of her daughter. Greater than 30 minutes discharging and coordinating her care. Copy requested to: Dr. Galaviz /[id number]/MODL ABEL
--- NOTE | 2018-08-29 16:25 | CPEKG ---
Test Reason : OPEN Blood Pressure : / mmHG Vent. Rate : 087 BPM Atrial Rate : 088 BPM P-R Int : 136 ms QRS Dur : 085 ms QT Int : 374 ms P-R-T Axes : 044 076 061 degrees QTc Int : 450 ms Sinus rhythm Borderline ST elevation inferior leads Confirmed by Tito Kevin ([id number]) on 08/29/2018 4:25:21 PM Referred By: Argentina Reyes Confirmed By:Tito Kevin
== END 2018-08-29 15:07 | disposition home health service (06) | DRG 74 ==
LOC: OBSVTOIN 20:27 → F3N 22:07 → F3E 08-28 14:33
PROVIDERS: ADMIT Internal Medicine; ATTEND Internal Medicine
DX: E11.40 Type 2 diabetes mellitus with diabetic neuropathy, unspecified (principal); E11.65 Type 2 diabetes mellitus with hyperglycemia; E87.6 Hypokalemia; R26.89 Other abnormalities of gait and mobility; I10 Essential (primary) hypertension; J45.909 Unspecified asthma, uncomplicated; F41.8 Other specified anxiety disorders; D64.9 Anemia, unspecified; E78.5 Hyperlipidemia, unspecified; F17.210 Nicotine dependence, cigarettes, uncomplicated; Z79.4 Long term (current) use of insulin
CPT/HCPCS: 70551-PN; 80307; 97110-GP; 97116-GP; 97162-GP; 97166-GO; 97530-GP; 97535-GO; G0480; G0515-GO; J1650; J1815; J3475